=== PATIENT | female | born 1975 | race Caucasian/White ===

== ENCOUNTER → 2016-10-25 | Outpatient (CLI) | payer OTHER ==
--- NOTE | 2016-10-27 09:52 | MM ---
Reason for exam: screening (asymptomatic). Last mammogram was performed 4 years and 2 months ago. History: Patient had first child at age 34. Benign excisional biopsy of the left breast, 2007. Benign excisional biopsy of the left breast, November 21, 2001. Physical Findings: A clinical breast exam by your physician is recommended on an annual basis and results should be correlated with mammographic findings. MG Screening Mammo w CAD Bilateral CC and MLO view(s) were taken. Prior study comparison: August 31, 2012, bilateral digital screening mammo w/CAD. October 25, 2001, bilateral special view mammogram. The breast tissue is heterogeneously dense. This may lower the sensitivity of mammography. No significant changes when compared with prior studies. ASSESSMENT: Benign, BI-RAD 2 RECOMMENDATION: Routine screening mammogram of both breasts in 1 year.
== END | disposition home or self-care (01) ==
LOC: RADMAMWWP 14:32
PROVIDERS: ATTEND Family Medicine
DX: Z12.31 Encounter for screening mammogram for malignant neoplasm of breast (principal)

== ENCOUNTER → 2016-11-29 | Outpatient (CLI) | payer OTHER ==
--- NOTE | 2016-11-29 13:17 | US ---
EXAMINATION TYPE: US thyroid st tissue head/neck DATE OF EXAM: 11/29/2016 11:18 AM COMPARISON: NONE CLINICAL HISTORY: E06.3 HASHIMOTOS, THYROIDITIS. GLAND SIZE: Right Lobe: 5.1 x 1.1 x 1.5 cm Overall Parenchyma: homogenous Left Lobe: 5.8 x 1.3 x 1.5 cm Overall Parenchyma: homogeneous Isthmus Thickness: 0.2 cm NODULES RIGHT: # of nodules measured on right: 0 LEFT: # of nodules measured on left: 0 ISTHMUS: # of nodules measured in the isthmus: 0 TECHNOLOGIST IMPRESSION: Bilateral neck scanned, no abnormal lymphadenopathy noted. Thyroid gland is upper limits of normal in size and fairly homogeneous in echotexture without evidenc e of suspicious focal solid or cystic nodule. IMPRESSION: Unremarkable study.
== END | disposition home or self-care (01) ==
LOC: RADUSWWP 11:03
PROVIDERS: ATTEND Family Medicine
DX: E06.3 Autoimmune thyroiditis (principal)
CPT/HCPCS: 76536

== ENCOUNTER → 2018-01-30 | Outpatient (CLI) | payer OTHER ==
--- NOTE | 2018-01-31 15:08 | MM ---
Reason for exam: screening (asymptomatic). Last mammogram was performed 1 year and 3 months ago. History: Patient had first child at age 34. Benign excisional biopsy of the left breast, 2007. Benign excisional biopsy of the left breast, November 21, 2001. Physical Findings: A clinical breast exam by your physician is recommended on an annual basis and results should be correlated with mammographic findings. MG Screening Mammo w CAD Bilateral CC and MLO view(s) were taken. Prior study comparison: October 25, 2016, bilateral MG screening mammo w CAD. August 31, 2012, bilateral digital screening mammo w/CAD. There are scattered fibroglandular densities. No significant changes when compared with prior studies. ASSESSMENT: Negative, BI-RAD 1 RECOMMENDATION: Routine screening mammogram of both breasts in 1 year.
== END | disposition home or self-care (01) ==
LOC: RADMAMWWP 11:00
PROVIDERS: ATTEND Obstetrics & Gynecology
DX: Z12.31 Encounter for screening mammogram for malignant neoplasm of breast (principal)
CPT/HCPCS: 77067

== ENCOUNTER 2018-06-03 21:12 | Observation (INO) | payer OTHER ==
--- NOTE | 2018-06-03 21:39 | ED ---
Chest Pain HPI - General Chief Complaint: Chest Pain Stated Complaint: Chest Pain Time Seen by Provider: 06/03/18 21:37 Source: patient Mode of arrival: wheelchair Limitations: no limitations - History of Present Illness Initial Comments: This patient is a 43-year-old woman who presents to be evaluated for substernal chest pain that does seem to radiate to her back, and it developed between 3 and 4 PM. She states that it initially as feeling like heartburn. She had just eaten pizza prior to coming on. She had also been mowing her lawn, but states she was not exerting herself when it started. She later was having some aching in her left shoulder but thought that that may be related to mowing the lawn. The patient states that at home she took aspirin and she also tried taking a hot shower to see if that'll help but didn't seem to affect the pain. She noted that she was having some nausea and she felt like she was breaking into a cold sweat. Review of risk factors shows that patient has strong history of heart disease on her mother's side of the family, including a grandmother who had "open heart surgery" when she was in her 30s. The patient does not know her paternal medical history. MD Complaint: chest pain Onset/Timin -: hour(s) Onset: after eating Pain Location: substernal Pain Radiation: none Severity: moderate Quality: other (Like heartburn) Consistency: constant Improves With: nothing Worsens With: nothing Anginal Symptoms: nausea, diaphoresis Treatments Prior to Arrival: aspirin - Related Data Allergies Allergy/AdvReac Type Severity Reaction Status Date / Time hydromorphone [From Dilaudid] Allergy Nausea & Verified 06/03/18 21:18 Vomiting morphine Allergy Nausea & Verified 06/03/18 21:18 Vomiting Sulfa (Sulfonamide Allergy Anaphylaxis Verified 06/03/18 21:18 Antibiotics) Review of Systems ROS Statement: Those systems with pertinent positive or pertinent negative responses have been documented in the HPI. ROS Other: All systems not noted in ROS Statement are negative. Constitutional: Denies: fever, chills Respiratory: Denies: cough, dyspnea Cardiovascular: Reports: chest pain. Denies: palpitations, dyspnea on exertion , orthopnea, edema, syncope Gastrointestinal: Reports: nausea. Denies: abdominal pain, vomiting, diarrhea, melena, hematochezia Genitourinary: Denies: dysuria, frequency, hematuria, abnormal menses Musculoskeletal: Denies: back pain Skin: Denies: rash Neurological: Denies: headache, weakness, numbness EKG Findings - EKG Comments: EKG Findings:: Possible Q waves inferiorly consistent with old inferior infarct. As no old ECG for comparison. - EKG Results: EKG: interpreted by ERMD, sinus rhythm, normal axis, normal QRS EKG shows: tachycardia (Rate approximately 106 bpm) Past Medical History Past Medical History: Atrial Fibrillation Additional Past Medical History / Comment(s): linda History of Any Multi-Drug Resistant Organisms: None Reported Past Surgical History: Section Past Psychological History: Depression Smoking Status: Never smoker Past Alcohol Use History: None Reported Past Drug Use History: Marijuana General Exam Limitations: no limitations General appearance: alert, in no apparent distress, obese Head exam: Present: atraumatic, normocephalic Eye exam: Present: normal appearance. Absent: scleral icterus, conjunctival injection, nystagmus ENT exam: Present: normal oropharynx Neck exam: Present: normal inspection Respiratory exam: Present: normal lung sounds bilaterally. Absent: respiratory distress, wheezes, rales, rhonchi, stridor Cardiovascular Exam: Present: regular rate, normal rhythm, normal heart sounds. Absent: systolic murmur, diastolic murmur, rubs, gallop GI/Abdominal exam: Present: soft. Absent: distended, tenderness, guarding, rebound, mass Extremities exam: Present: normal inspection, normal capillary refill. Absent: pedal edema, calf tenderness Back exam: Present: normal inspection. Absent: CVA tenderness (R), CVA tenderness (L) Neurological exam: Present: alert Skin exam: Present: warm, dry, intact, normal color. Absent: rash Course Vital Signs 06/03/18 06/03/18 06/03/18 21:14 21:17 22:17 Temperature 98.5 F Pulse Rate 125 H 101 H 97 Respiratory 18 15 16 Rate Blood Pressure 170/104 163/98 132/78 O2 Sat by Pulse 98 93 L 99 Oximetry Disposition
[2018-06-03 21:52] LABS: Basophils % (A) 0 %; Eosinophils # (A) 0.2 k/uL (0-0.7); Eosinophils % (A) 2 %; HCT 38.8 % (34.0-46.0); HGB 12.7 gm/dL (11.4-16.0); Lymphocytes # (A) 1.8 k/uL (1.0-4.8); Lymphocytes % (A) 16 %; MCH 26.7 pg (25.0-35.0); MCHC 32.9 g/dL (31.0-37.0); MCV 81.2 fL (80.0-100.0); Mean Platelet Volume 7.8; Monocytes # (A) 0.5 k/uL (0-1.0); Monocytes % (A) 5 %; Neutrophils # (A) 8.5 k/uL (1.3-7.7); Neutrophils % (A) 76 %; Platelet Count 227 k/uL (150-450); RBC 4.77 m/uL (3.80-5.40); RDW 13.7 % (11.5-15.5); WBC 11.2 k/uL (3.8-10.6)
[2018-06-03 22:02] LABS: ALT 42 U/L (9-52); AST 27 U/L (14-36); Albumin 3.9 g/dL (3.5-5.0); Alkaline Phosphatase 72 U/L (38-126); Amylase 85 U/L (30-110); Anion Gap 9 mmol/L; Blood Urea Nitrogen 11 mg/dL (7-17); Calcium 9.1 mg/dL (8.4-10.2); Carbon Dioxide 20 mmol/L (22-30); Chloride 109 mmol/L (98-107); Glucose 106 mg/dL (74-99); Lipase 266 U/L (23-300); Magnesium 1.7 mg/dL (1.6-2.3); Potassium 4.1 mmol/L (3.5-5.1); Sodium 138 mmol/L (137-145); Total Bilirubin 0.3 mg/dL (0.2-1.3); Total Protein 6.9 g/dL (6.3-8.2)
[2018-06-03 22:04] LABS: Creatine Kinase 66 U/L (30-135)
[2018-06-03 22:17] LABS: Creatine Kinase MB 0.6 ng/mL (0.0-2.4); Troponin I <0.012 ng/mL (0.000-0.034)
[2018-06-03 22:18] LABS: Partial Thromboplastin Time 22.2 sec (22.0-30.0); Prothrombin Time 9.5 sec (9.0-12.0)
--- NOTE | 2018-06-03 22:21 | XR ---
EXAMINATION TYPE: XR chest 2V DATE OF EXAM: 06/03/2018 COMPARISON: NONE HISTORY: Difficulty breathing TECHNIQUE: Frontal and lateral views of the chest are obtained. FINDINGS: Heart and mediastinum are normal. Lungs are clear. Diaphragm is normal. Bony thorax appear s normal. IMPRESSION: Normal chest
[2018-06-03 22:22] LABS: D-Dimer 1.1 mg/L FEU (<0.60)
--- NOTE | 2018-06-03 22:53 | CT ---
EXAMINATION TYPE: CT chest angio for PE DATE OF EXAM: 06/03/2018 COMPARISON: None HISTORY: Left upper chest pain today. CT DLP: 498.1 mGycm Automated exposure control for dose reduction was used. CONTRAST: CT Chest for pulmonary embolism performed with with IV Contrast, patient injected with 72 mL of Isovu e 370. FINDINGS: There are 3-D post processed images. The lungs are clear of infiltrate. There is no evidence of a pulmonary mass. There is no pleural effu liam. There is normal contrast opacification of the pulmonary arteries. I see no filling defect. Ther e are no hilar masses. There is no mediastinal adenopathy. Thoracic aorta appears normal. There is no evidence of aneurysm or dissection. Heart size is normal. The bony thorax is intact. There is minor spurring in the thoracic spine. IMPRESSION: No evidence of pulmonary embolism. Small hiatal hernia noted.
[2018-06-03] MEDS ORDERED: ONDANSETRON 4 MG/2 ML VIAL IVP STA (23:09)
[2018-06-03] MEDS ORDERED: FAMOTIDINE 20 MG/2 ML VIAL IV STA (23:09)
[2018-06-03] MEDS ORDERED: KETOROLAC 30 MG/ML 1 ML VIAL IVP STA (23:09)
[2018-06-03] MEDS ORDERED: NITROGLYCERIN SL TABS 0.4 MG TAB SUBLINGUAL PRN (23:37)
[2018-06-03] MEDS ORDERED: ENOXAPARIN 100 MG/ML SYRINGE SQ STA (23:50)
[2018-06-04] MEDS ORDERED: METOPROLOL TARTRATE 25 MG TAB PO STA (00:32)
--- NOTE | 2018-06-04 01:17 | US ---
EXAMINATION TYPE: US abdomen limited DATE OF EXAM: 06/04/2018 COMPARISON: NONE CLINICAL HISTORY: Attention RUQ. Epigastric pain.. Hx nephrolithiasis and lithotripsy EXAM MEASUREMENTS: Liver Length: 19.0 cm Gallbladder Wall: 0.2 cm CBD: 0.5 cm Right Kidney: 12.1 x 5.2 x 5.5 cm Limited due to bowel gas Pancreas: Tail obscured by overlying bowel gas Liver: Increased attenuation Gallbladder: No stones seen Evidence for sonographic Alicia's sign: No CBD: wnl Right Kidney: echogenic foci seen likely nephrolithiasis (0.8 x 0.3 x 0.6 cm) IMPRESSION: No gallstones or dilated ducts. No hydronephrosis in the right kidney. Possible 5 mm nono bstructing calculus in the upper pole right kidney.
[2018-06-04 01:47] VITALS: BMI 43.4
[2018-06-04 03:39] LABS: Creatine Kinase 59 U/L (30-135)
[2018-06-04 03:41] LABS: Cholesterol 184 mg/dL (<200); HDL Cholesterol 52 mg/dL (40-60); LDL Cholesterol,Calculated 89 mg/dL (0-99); Triglycerides 215 mg/dL (<150)
[2018-06-04 03:52] LABS: Creatine Kinase MB 0.6 ng/mL (0.0-2.4); Troponin I <0.012 ng/mL (0.000-0.034)
[2018-06-04] MEDS ORDERED: ASPIRIN 81 MG PO SCH (09:00)
[2018-06-04] MEDS ORDERED: ASPIRIN 325 MG TAB PO SCH (09:00)
[2018-06-04] MEDS ORDERED: NORGESTIMATE ETHINYL ESTRADIOL PO SCH (09:30)
[2018-06-04] MEDS ORDERED: LORATADINE 10 MG TAB PO SCH (09:30)
[2018-06-04] MEDS ORDERED: MAGNESIUM OXIDE 400 MG TAB PO SCH (09:30)
[2018-06-04] MEDS ORDERED: FLUoxetine HCL 20 MG CAP PO SCH (10:00)
[2018-06-04 10:09] LABS: Basophils % (A) 1 %; Eosinophils # (A) 0.2 k/uL (0-0.7); Eosinophils % (A) 4 %; HCT 36.4 % (34.0-46.0); HGB 12.5 gm/dL (11.4-16.0); Lymphocytes # (A) 1.5 k/uL (1.0-4.8); Lymphocytes % (A) 24 %; MCH 28.3 pg (25.0-35.0); MCHC 34.4 g/dL (31.0-37.0); MCV 82.2 fL (80.0-100.0); Mean Platelet Volume 8.3; Monocytes # (A) 0.4 k/uL (0-1.0); Monocytes % (A) 7 %; Neutrophils % (A) 63 %; Platelet Count 203 k/uL (150-450); RBC 4.42 m/uL (3.80-5.40); RDW 13.7 % (11.5-15.5); WBC 6.4 k/uL (3.8-10.6)
[2018-06-04 10:22] LABS: ALT 40 U/L (9-52); AST 25 U/L (14-36); Albumin 3.5 g/dL (3.5-5.0); Alkaline Phosphatase 59 U/L (38-126); Anion Gap 7 mmol/L; Blood Urea Nitrogen 12 mg/dL (7-17); Calcium 8.6 mg/dL (8.4-10.2); Carbon Dioxide 20 mmol/L (22-30); Chloride 109 mmol/L (98-107); Glucose 96 mg/dL (74-99); Potassium 4.3 mmol/L (3.5-5.1); Sodium 136 mmol/L (137-145); Total Bilirubin 0.5 mg/dL (0.2-1.3); Total Protein 6.4 g/dL (6.3-8.2)
[2018-06-04 10:46] LABS: Creatine Kinase 57 U/L (30-135)
--- NOTE | 2018-06-04 10:46 | P.HPIM ---
History of Present Illness H&P Date: 06/04/18 Chief Complaint: Chest pain This is a 43-year-old female, patient of Dr. Meadows. She has a known past medical history of Benito's, seasonal ALLERGIES, PVCs, kidney stones with previous lithotripsy. Patient reports yesterday afternoon she had been working out in the yard cutting the lawn also pulling some weeds. She noted initially that she thought her ALLERGIES were acting up she had some drainage and a little hacking cough. Then started to have chest discomfort in the left side of the chest that eventually went up into the jaw and left shoulder. Patient also reports eating pizza for lunch. She initially thought that she might be having heartburn from her lunch. She took Tums also had an aspirin and Motrin a little bit later. None of these medications worked. She tried a warm shower and again was still having symptoms. She does have and grandmother who at the age of 30 had open heart surgery. Patient reports having a stress test about 2 years ago which was negative. At that time she was diagnosed with Benito's as well. She reports not being on any medication for Benito's. Troponins are negative 2 sets. She did have an elevated d-dimer 1.10 CTA was negative for PE. Abdominal ultrasound showed no evidence of gallstones or dilation in the ducts. There is a possible 5 mm nonobstructing stone in the right kidney which patient is aware of. Her TSH level normal at 2.150. White count initially elevated at 11.2 has normalized with no antibiotics. Patient also reports having some shortness of breath nausea and dizziness with her symptoms. She denies any fever or chills. Denies any actual vomiting and any changes in her bowel movements. Denies any burning with urination. She did have one loose stool this morning. Patient has been admitted to observation for further workup in regards to her chest pain. Cardiology consulted and patient is scheduled for stress test this afternoon. Echo already completed. Awaiting results. Review of Systems Please refer to HPI otherwise unremarkable Past Medical History Past Medical History: Hypertension, Thyroid Disorder Additional Past Medical History / Comment(s): hashimotos, kidney stones, PVCs History of Any Multi-Drug Resistant Organisms: None Reported Past Surgical History: Section Additional Past Surgical History / Comment(s): bunionectomy, lumpectomy left breast Past Anesthesia/Blood Transfusion Reactions: No Reported Reaction Past Psychological History: Depression Smoking Status: Never smoker Past Alcohol Use History: None Reported Past Drug Use History: Marijuana - Past Family History Mother Family Medical History: Hypertension Medications and Allergies Home Medications Medication Instructions Recorded Confirmed Type Aspirin [Adult Low Dose Aspirin EC] 81 mg PO DAILY 06/04/18 06/04/18 History Ergocalciferol [Vitamin D2 1 cap PO MO 06/04/18 06/04/18 History (DRISDOL)] FLUoxetine HCL [PROzac] 40 mg PO DAILY 06/04/18 06/04/18 History Loratadine 10 mg PO DAILY 06/04/18 06/04/18 History Magnesium Oxide [Mag-Ox] 400 mg PO DAILY 06/04/18 06/04/18 History Norgestimate-Ethinyl Estradiol 1 tab PO DAILY 06/04/18 06/04/18 History [Ortho Tri-Cyclen 28 Tablet] Propranolol [Inderal] 20 mg PO BID 06/04/18 06/04/18 History Topiramate [Topamax] 50 mg PO HS 06/04/18 06/04/18 History Allergies Allergy/AdvReac Type Severity Reaction Status Date / Time Sulfa (Sulfonamide Allergy Anaphylaxis Verified 06/04/18 08:59 Antibiotics) acetaminophen [From Vicodin] AdvReac Nausea & Verified 06/04/18 09:01 Vomiting hydrocodone [From Vicodin] AdvReac Nausea & Verified 06/04/18 09:01 Vomiting hydromorphone [From Dilaudid] AdvReac Nausea & Verified 06/04/18 09:01 Vomiting morphine AdvReac Nausea & Verified 06/04/18 09:01 Vomiting Physical Exam Vitals: Vital Signs Temp Pulse Pulse Resp BP BP Pulse Ox 06/04/18 08:00 75 16 06/04/18 07:10 98.4 F 56 L 18 113/71 97 06/04/18 04:00 98.5 F 75 16 138/87 96 06/04/18 03:48 16 06/04/18 01:30 16 06/04/18 01:20 98.5 F 88 16 130/82 96 06/04/18 00:00 84 16 165/102 98 06/03/18 22:17 97 16 132/78 99 06/03/18 21:25 15 06/03/18 21:17 101 H 15 163/98 93 L 06/03/18 21:14 98.5 F 125 H 18 170/104 98 Intake and Output 06/03/18 06/04/18 06/04/18 22:59 06:59 14:59 Other: Voiding Method Toilet Toilet # Voids 1 Weight 104.326 kg 104.3 kg Head normocephalic Neck supple Lungs clear to auscultation bilaterally no wheezing or crackles Heart regular rate and rhythm S1-S2, no rub or gallop Abdomen is soft nontender nondistended positive bowel sounds no hepatosplenomegaly Extremities no edema Neuro alert and orientated to 3 Results CBC & Chem 7: 06/04/18 03:04 06/04/18 09:40 Labs: Abnormal Lab Results - Last 24 Hours (Table) 06/03/18 06/03/18 06/03/18 Range/Units 21:34 21:34 21:34 WBC 11.2 H (3.8-10.6) k/uL Neutrophils # 8.5 H (1.3-7.7) k/uL D-Dimer 1.10 H (<0.60) mg/L FEU Sodium (137-145) mmol/L Chloride 109 H (98-107) mmol/L Carbon Dioxide 20 L (22-30) mmol/L Glucose 106 H (74-99) mg/dL Triglycerides (<150) mg/dL 06/04/18 06/04/18 Range/Units 03:04 09:40 WBC (3.8-10.6) k/uL Neutrophils # (1.3-7.7) k/uL D-Dimer (<0.60) mg/L FEU Sodium 136 L (137-145) mmol/L Chloride 109 H (98-107) mmol/L Carbon Dioxide 20 L (22-30) mmol/L Glucose (74-99) mg/dL Triglycerides 215 H (<150) mg/dL Thrombosis Risk Factor Assmnt - Choose All That Apply Each Factor Represents 1 point: Age 41-60 years, Obesity (BMI >25) Thrombosis Risk Factor Assessment Total Risk Factor Score: 2 Thrombosis Risk Factor Assessment Level: Low Risk Assessment and Plan Assessment: 1. Chest pain: troponins negative 2. EKG sinus tach with a heart rate of 106. Patient did receive a dose of metoprolol in the ER. Cardiology consulted and have ordered a stress test and echo. Chest x-ray negative. Abdominal ultrasound shows no evidence of gallstones or dilated ducts. There is a possible 5 mm nonobstructing stone in the right kidney 2. Elevated d-dimer of 1.10 on admission CTA negative for PE 3. History of kidney stones in the right kidney with previous lithotripsy 4. History of Benito's: TSH normal at 2.150 5. 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 Vitamin D deficiency resume vitamin D supplement 7. History of seasonal ALLERGIES GI prophylaxis Pepcid and DVT prophylaxis subcu heparin Time with Patient: Greater than 30 (Greater than 60% of the total time spent in counseling and coordination of care.I performed an examination of the patient and discussed their management with the physician Technical Solutions Engineer. I have reviewed the Physician Technical Solutions Engineer's notes and agree with the documented findings and plan of care)
--- NOTE | 2018-06-04 10:46 | ECHOF ---
Referral Reason:cp, sob MEASUREMENTS -------- HEIGHT: 154.9 cm WEIGHT: 103.9 kg BP: 138/87 RVIDd: 2.9 cm (< 3.3) IVSd: 1.1 cm (0.6 - 1.1) LVIDd: 4.7 cm (3.9 - 5.3) LVPWd: 1.1 cm (0.6 - 1.1) IVSs: 1.5 cm LVIDs: 2.9 cm LVPWs: 1.5 cm LAESV Index (A-L): 28.10 ml/m Ao Diam: 2.7 cm (2.0 - 3.7) AV Cusp: 1.9 cm (1.5 - 2.6) LA Diam: 3.4 cm (2.7 - 3.8) EPSS: 0.5 cm MV E Medhat: 1.00 m/s MV DecT: 252 ms MV A Mdehat: 0.91 m/s MV E/A Ratio: 1.09 RAP: 10.00 mmHg RVSP: 32.27 mmHg MV EF SLOPE: 92.41 mm/s (70 - 150) MV EXCURSION: 1.73 cm (> 18.000) FINDINGS -------- Sinus rhythm. This was a technically good study. LV size, wall thickness and systolic function are normal, with an EF greater than 55%. There is bor derline concentric left ventricular hypertrophy. The right ventricle is normal in size and function. Normal LA size by volume 22+/-6 ml/m2. The right atrium is normal in size. The aortic valve is trileaflet, and appears structurally normal. No aortic stenosis or regurgitation. The mitral valve is normal. There is trace to mild mitral regurgitation. Trace tricuspid regurgitation present. Right ventricular systolic pressure is normal at < 35 mmHg. There is no evidence of pulmonary hypertension. The pulmonic valve was not well visualized. The aortic root size is normal. The IVC is dilated with normal collapse. There is no pericardial effusion. CONCLUSIONS -------- 1. Sinus rhythm. 2. This was a technically good study. 3. LV size, wall thickness and systolic function are normal, with an EF greater than 55%. 4. There is borderline concentric left ventricular hypertrophy. 5. Normal LA size by volume 22+/-6 ml/m2. 6. The aortic valve is trileaflet, and appears structurally normal. No aortic stenosis or regurgitati on. 7. There is trace to mild mitral regurgitation. 8. Trace tricuspid regurgitation present. 9. Right ventricular systolic pressure is normal at < 35 mmHg. 10. The aortic root size is normal. 11. The IVC is dilated with normal collapse. 12. There is no pericardial effusion. DIGITAL PRINTER OPERATOR: Luis Quinones RDCS
[2018-06-04 10:58] LABS: Creatine Kinase MB 0.6 ng/mL (0.0-2.4); Troponin I <0.012 ng/mL (0.000-0.034)
[2018-06-04] MEDS ORDERED: ERGOCALCIFEROL 50,000 UNIT CAP PO SCH (11:00)
--- NOTE | 2018-06-04 11:07 | P.CRDCN ---
History of Present Illness History of present illness: Mrs. Vital is a pleasant 43-year-old female past medical history significant for jennifer disease. She denies history of coronary artery disease , hypertension, dyslipidemia or diabetes mellitus. She has seen Dr. Xiao in the past and has had a stress test approximately 5 years ago. We have been asked to see her in consultation for chest pain. She states she was cutting the grass yesterday and started feeling a heavy sensation in the left precordial region with increased shortness of breath. She stopped cutting the grass and took a Tums thinking it was reflux from eating pizza for lunch. A few minutes later her left shoulder started to throb. She attributed this to all the yard work she had been doing a took a motrin. 30 minutes later her left jaw started to ache and she became extremely diaphoretic. She checked her BP at home, 170/ 90. She took aspirin and came to ED for evaluation. Her discomfort persisted off and on for most of the night with no specific aggravating factors. She denies associated palpitations, dizziness, nausea or vomiting. EKG reveals sinus mechanism with non-specific minimal ST depression in pepe- lateral leads. Chest xray negative for an acute cardiopulmonary process. CTA negative for PE with normal aorta. Abdominal ultrasound negative for acute cholecystitis. Laboratory data reviewed, hemoglobin 12.5, platelets 203, INR 1.1, sodium 136, potassium 4.3, magnesium 1.7, creatinine 0.7, cardiac enzymes negative 3, TSH 2.15, LDL 89 and HDL 52. She currently takes aspirin 81 mg and propanolol 25 mg twice a day. Propanolol was used for frequent palpitations secondary to Jennifer disease. Review of Systems At the time of my exam: CONSTITUTIONAL: Denies fever. Denies chills. EYES: Denies blurred vision. Denies vision changes. Denies eye pain. EARS, NOSE, MOUTH & THROAT: Denies headache. Denies sore throat. Denies ear pain. CARDIOVASCULAR: Denies chest pain. Denies shortness of breath. Denies orthopnea. Denies PND. Denies palpitations. RESPIRATORY: Denies cough. GASTROINTESTINAL: Denies abdominal pain. Denies diarrhea. Denies constipation. Denies nausea. Denies vomiting. MUSCULOSKELETAL: Denies myalgias. INTEGUMENTARY: Denies pruitis. Denies rash. NEUROLOGIC: Denies numbness. Denies tingling. Denies weakness. PSYCHIATRIC: Denies anxiety. Denies depression. ENDOCRINE: Denies fatigue. Denies weight change. Denies polydipsia. Denies polyurina. GENITOURINARY: Denies burning, hematuria or urgency with micturation. HEMATOLOGIC: Denies history of anemia. Denies bleeding. Past Medical History Past Medical History: Atrial Fibrillation, Hypertension, Thyroid Disorder Additional Past Medical History / Comment(s): hashimotos, kidney stones History of Any Multi-Drug Resistant Organisms: None Reported Past Surgical History: Section Additional Past Surgical History / Comment(s): bunionectomy, lumpectomy left breast Past Anesthesia/Blood Transfusion Reactions: No Reported Reaction Past Psychological History: Depression Smoking Status: Never smoker Past Alcohol Use History: None Reported Past Drug Use History: Marijuana - Past Family History Mother Family Medical History: Hypertension Medications and Allergies Home Medications Medication Instructions Recorded Confirmed Type Aspirin [Adult Low Dose Aspirin EC] 81 mg PO DAILY 06/04/18 06/04/18 History Ergocalciferol [Vitamin D2 1 cap PO MO 06/04/18 06/04/18 History (DRISDOL)] FLUoxetine HCL [PROzac] 40 mg PO DAILY 06/04/18 06/04/18 History Loratadine 10 mg PO DAILY 06/04/18 06/04/18 History Magnesium Oxide [Mag-Ox] 400 mg PO DAILY 06/04/18 06/04/18 History Norgestimate-Ethinyl Estradiol 1 tab PO DAILY 06/04/18 06/04/18 History [Ortho Tri-Cyclen 28 Tablet] Propranolol [Inderal] 20 mg PO BID 06/04/18 06/04/18 History Topiramate [Topamax] 50 mg PO HS 06/04/18 06/04/18 History Allergies Allergy/AdvReac Type Severity Reaction Status Date / Time Sulfa (Sulfonamide Allergy Anaphylaxis Verified 06/04/18 08:59 Antibiotics) acetaminophen [From Vicodin] AdvReac Nausea & Verified 06/04/18 09:01 Vomiting hydrocodone [From Vicodin] AdvReac Nausea & Verified 06/04/18 09:01 Vomiting hydromorphone [From Dilaudid] AdvReac Nausea & Verified 06/04/18 09:01 Vomiting morphine AdvReac Nausea & Verified 06/04/18 09:01 Vomiting Physical Exam Vitals: Vital Signs Temp Pulse Pulse Resp BP BP Pulse Ox 06/04/18 04:00 98.5 F 75 16 138/87 96 06/04/18 03:48 16 06/04/18 01:30 16 06/04/18 01:20 98.5 F 88 16 130/82 96 06/04/18 00:00 84 16 165/102 98 06/03/18 22:17 97 16 132/78 99 06/03/18 21:25 15 06/03/18 21:17 101 H 15 163/98 93 L 06/03/18 21:14 98.5 F 125 H 18 170/104 98 Intake and Output 06/03/18 06/04/18 06/04/18 22:59 06:59 14:59 Other: Voiding Method Toilet Weight 104.326 kg 104.3 kg Blood pressure 113/71 heart rate 56 afebrile maintaining oxygen saturation on room air GENERAL: This is a 43-year-old female in no apparent distress at the time of my examination. Obese. HEENT: Head is atraumatic, normocephalic. Pupils are equal, round. Sclerae anicteric. Conjunctivae are clear. Mucous membranes of the mouth are moist. Neck is supple. There is no jugular venous distention. No carotid bruit is heard. LUNGS: Clear to auscultation no wheezes, rales or rhonchi. No chest wall tenderness is noted on palpation or with deep breathing. HEART: Regular rate and rhythm without murmurs, rubs or gallops. S1 and S2 heard. ABDOMEN: Soft, nontender. Bowel sounds are heard. No organomegaly noted. EXTREMITIES: No evidence of peripheral edema and no calf tenderness noted. VASCULAR: Radial and dorsalis pedis pulses palpated, no evidence of clubbing. NEUROLOGIC: Patient is awake, alert and oriented x3. Results 06/04/18 03:04 06/04/18 09:40 Cardiac Enzymes 06/03/18 06/03/18 06/04/18 Range/Units 21:34 21:34 03:04 AST 27 (14-36) U/L CK-MB (CK-2) 0.6 0.6 (0.0-2.4) ng/mL Troponin I <0.012 <0.012 (0.000-0.034) ng/mL Coagulation 06/03/18 Range/Units 21:34 PT 9.5 (9.0-12.0) sec APTT 22.2 (22.0-30.0) sec Lipids 06/04/18 Range/Units 03:04 Triglycerides 215 H (<150) mg/dL Cholesterol 184 (<200) mg/dL HDL Cholesterol 52 (40-60) mg/dL CBC 06/03/18 Range/Units 21:34 WBC 11.2 H (3.8-10.6) k/uL RBC 4.77 (3.80-5.40) m/uL Hgb 12.7 (11.4-16.0) gm/dL Hct 38.8 (34.0-46.0) % Plt Count 227 (150-450) k/uL Comprehensive Metabolic Panel 06/03/18 Range/Units 21:34 Sodium 138 (137-145) mmol/L Potassium 4.1 (3.5-5.1) mmol/L Chloride 109 H (98-107) mmol/L Carbon Dioxide 20 L (22-30) mmol/L BUN 11 (7-17) mg/dL Creatinine 0.80 (0.52-1.04) mg/dL Glucose 106 H (74-99) mg/dL Calcium 9.1 (8.4-10.2) mg/dL AST 27 (14-36) U/L ALT 42 (9-52) U/L Alkaline Phosphatase 72 (38-126) U/L Total Protein 6.9 (6.3-8.2) g/dL Albumin 3.9 (3.5-5.0) g/dL Current Medications Generic Name Dose Route Start Last Admin Trade Name Freq PRN Reason Stop Dose Admin Aspirin 325 mg 06/04/18 09:00 Aspirin PO DAILY SHOSHANA Nitroglycerin 0.4 mg 06/03/18 23:37 Nitrostat SUBLINGUAL Q5M PRN Chest Pain Intake and Output 06/03/18 06/04/18 06/04/18 22:59 06:59 14:59 Other: Voiding Method Toilet Weight 104.326 kg 104.3 kg 06/03/18 21:34 06/03/18 21:34 Assessment and Plan Assessment: ASSESSMENT Chest pain, atypical. An acute coronary event has been ruled out with no acute EKG evidence of ischemia and negative cardiac enzymes. Baseline EKG abnormalities with minimal ST depression in pepe-lateral leads Frequent palpitations Jennifer disease Obesity PLAN Obtain 2D echocardiogram and doppler study to assess cardiac structure and function. Perform exercise stress echocardiogram to assess for stress induced cardiac ischemia. If stress test is normal she is stable from a cardiac perspective. Follow up with Dr. Xiao upon discharge. Lifestyle modifications discussed for weight loss. Thank you kindly for this consultation. Nurse Practitioner note has been reviewed, I agree with a documented findings and plan of care. Patient was seen and examined.
[2018-06-04 12:11] VITALS: BP 111/61; PULSE 65; RESP 18; TEMP 98.5
--- NOTE | 2018-06-04 13:31 | ECHOS ---
STRESS ECHOCARDIOGRAM DATE OF SERVICE: 06/04/2018 INDICATIONS: Chest pain. MEDICATIONS: BASELINE HEART RATE: 67 BASELINE BLOOD PRESSURE: 153/80 MAXIMUM HEART RATE: 161 MAXIMUM BLOOD PRESSURE: 199/76 85% MPHR: 152 100% MPHR: 179 METS: 9.1 MAXIMUM STAGE REACHED: II TOTAL EXERCISE TIME: 7 minutes 41 seconds CLINICAL INFORMATION: Baseline rhythm is sinus mechanism, rate of 67, normal axis and intervals, normal electrocardiogram. Baseline blood pressure 153/80 mmHg. Patient exercise on Angel protocol for 7 minute 41 seconds reaching a peak rate 161 beats per minute, which is equal to 89% maximum predicted heart rate. Peak blood pressure 199/76 mmHg. Test was terminated secondary to fatigue. There was no chest pain. Electrocardiograph monitoring revealed no evidence of diagnostic ischemic ST deviation. Baseline echocardiogram revealed normal wall motion. At peak exercise, there was normal wall motion augmentation with no hypokinesis or dyskinesis. CONCLUSION: 1. Average exercise tolerance with normal electrocardiograph response to exercise. 2. Normal stress echocardiogram with no evidence of stress induced ischemia. MMODL / IJN: [id number] /
--- NOTE | 2018-06-04 13:54 | P.DS ---
Providers Date of admission: 06/03/18 23:40 Expected date of discharge: 06/04/18 Attending physician: Luis A Minor Consults: 06/03/18 23:37 Consult Physician Routine Consulting Provider: Juan Johnson Consult Reason/Comments: chest pain Do you want consulting provider notified?: Yes Primary care physician: Ruby Meadows Hospital Course: Discharge diagnosis 1. Chest pain: UT ruled out. troponins negative 2. EKG sinus tach with a heart rate of 106. Patient did receive a dose of metoprolol in the ER. Cardiology consulted and have ordered a stress test and echo. Chest x-ray negative. Abdominal ultrasound shows no evidence of gallstones or dilated ducts. There is a possible 5 mm nonobstructing stone in the right kidney. Stress echo was normal. No evidence of stress-induced ischemia. Echo reports an EF greater than 55%. Patient seen evaluated by cardiology and they've cleared her for discharge. 2. Elevated d-dimer of 1.10 on admission CTA negative for PE 3. History of kidney stones in the right kidney with previous lithotripsy 4. History of Benito's: TSH normal at 2.150 5. 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 Vitamin D deficiency resume vitamin D supplement 7. History of seasonal ALLERGIES Hospital course This is a 43-year-old female, patient of Dr. Meadows. She has a known past medical history of Benito's, seasonal ALLERGIES, PVCs, kidney stones with previous lithotripsy. Patient reports yesterday afternoon she had been working out in the yard cutting the lawn also pulling some weeds. She noted initially that she thought her ALLERGIES were acting up she had some drainage and a little hacking cough. Then started to have chest discomfort in the left side of the chest that eventually went up into the jaw and left shoulder. Patient also reports eating pizza for lunch. She initially thought that she might be having heartburn from her lunch. She took Tums also had an aspirin and Motrin a little bit later. None of these medications worked. She tried a warm shower and again was still having symptoms. She does have and grandmother who at the age of 30 had open heart surgery. Patient reports having a stress test about 2 years ago which was negative. At that time she was diagnosed with Benito's as well. She reports not being on any medication for Benito's. Troponins are negative 2 sets. She did have an elevated d-dimer 1.10 CTA was negative for PE. Abdominal ultrasound showed no evidence of gallstones or dilation in the ducts. There is a possible 5 mm nonobstructing stone in the right kidney which patient is aware of. Her TSH level normal at 2.150. White count initially elevated at 11.2 has normalized with no antibiotics. Patient also reports having some shortness of breath nausea and dizziness with her symptoms. She denies any fever or chills. Denies any actual vomiting and any changes in her bowel movements. Denies any burning with urination. She did have one loose stool this morning. Patient has been admitted to observation for further workup in regards to her chest pain. Patient was seen evaluated by cardiology. Underwent a stress echo which was reported normal with no evidence of stress-induced ischemia. Echo completed showing an EF greater than 55%. Patient's symptoms have improved. Patient has been cleared by cardiology for discharge. She is medically stable for discharge. Their concerns that her symptoms are likely related to her Benito 's. It is recommended that patient does follow up with an sports therapist in the outpatient setting within the next week. I performed an examination of the patient and discussed their management with the physician Semiconductor Wafers Saw Operator. I have reviewed the Physician Semiconductor Wafers Saw Operator's notes and agree with the documented findings and plan of care Patient Condition at Discharge: Stable Plan - Discharge Summary New Discharge Prescriptions: Continue FLUoxetine HCL [PROzac] 40 mg PO DAILY Norgestimate-Ethinyl Estradiol [Ortho Tri-Cyclen 28 Tablet] 1 tab PO DAILY Ergocalciferol [Vitamin D2 (DRISDOL)] 1 cap PO MO Topiramate [Topamax] 50 mg PO HS Magnesium Oxide [Mag-Ox] 400 mg PO DAILY Loratadine 10 mg PO DAILY Propranolol [Inderal] 20 mg PO BID Aspirin [Adult Low Dose Aspirin EC] 81 mg PO DAILY Discharge Medication List Aspirin [Adult Low Dose Aspirin EC] 81 mg PO DAILY 06/04/18 [History] Ergocalciferol [Vitamin D2 (DRISDOL)] 1 cap PO MO 06/04/18 [History] FLUoxetine HCL [PROzac] 40 mg PO DAILY 06/04/18 [History] Loratadine 10 mg PO DAILY 06/04/18 [History] Magnesium Oxide [Mag-Ox] 400 mg PO DAILY 06/04/18 [History] Norgestimate-Ethinyl Estradiol [Ortho Tri-Cyclen 28 Tablet] 1 tab PO DAILY 06/04 [History] Propranolol [Inderal] 20 mg PO BID 06/04/18 [History] Topiramate [Topamax] 50 mg PO HS 06/04/18 [History] Follow up Appointment(s)/Referral(s): Armida Rondon MD [STAFF PHYSICIAN] - 2 Weeks (office will call with appointment. ) Ruby Meadows MD [Primary Care Provider] - 1 Week Activity/Diet/Wound Care/Special Instructions: Diet: low fat Activity: as tolerated Patient to follow up with Trains Service Conductor outpatient in 1 week Discharge Disposition: HOME SELF-CARE
[2018-06-04] MEDS ORDERED: PROPRANOLOL 20 MG TAB PO SCH (21:00)
[2018-06-04] MEDS ORDERED: TOPIRAMATE 25 MG TAB PO SCH (21:00)
[2018-06-04] MEDS ORDERED: HEPARIN SODIUM,PORCINE 5,000 UNIT/ML 1 ML VIAL SQ SCH (21:00)
[2018-06-05] MEDS ORDERED: FAMOTIDINE 20 MG TAB PO SCH (09:00)
== END 2018-06-04 14:40 | disposition home or self-care (01) ==
LOC: EC 21:12 → 3SUR 23:40 → 3OBS 06-04 07:00
PROVIDERS: ADMIT Internal Medicine; ATTEND Internal Medicine
DX: R07.89 Other chest pain (principal); R79.89 Other specified abnormal findings of blood chemistry; R61 Generalized hyperhidrosis; R11.0 Nausea; R06.02 Shortness of breath; I49.3 Ventricular premature depolarization; E06.3 Autoimmune thyroiditis; I10 Essential (primary) hypertension; I48.91 Unspecified atrial fibrillation; J30.2 Other seasonal allergic rhinitis; E55.9 Vitamin D deficiency, unspecified; D72.829 Elevated white blood cell count, unspecified; F32.9 Major depressive disorder, single episode, unspecified; E66.9 Obesity, unspecified; Z68.41 Body mass index [BMI] 40.0-44.9, adult; Z79.82 Long term (current) use of aspirin; Z79.3 Long term (current) use of hormonal contraceptives; Z79.899 Other long term (current) drug therapy; Z88.5 Allergy status to narcotic agent; Z88.2 Allergy status to sulfonamides; Z88.6 Allergy status to analgesic agent; Z86.39 Personal history of other endocrine, nutritional and metabolic disease; Z87.442 Personal history of urinary calculi; Z82.49 Family history of ischemic heart disease and other diseases of the circulatory system
CPT/HCPCS: 99285 ×2; 96374 ×2; 96375 ×3; 96372; 36415; 93005; 93306; 85379; 80061; 80053 ×2; 84443; 82150; 82550 ×2; 82553 ×2; 83690; 83735; 84484 ×2; 85025 ×2; 85610; 85730; 71046; 76705; 71275; G0378 ×2; C8930; J2405; J1650; J1885; Q9950; Q9967; 93351

== ENCOUNTER 2018-11-26 10:53 | Inpatient (IN) | payer OTHER ==
[2018-11-23 10:17] VITALS: BMI 43.4
--- NOTE | 2018-11-25 14:00 | HP ---
HISTORY AND PHYSICAL REASON FOR ADMISSION: Surgery is scheduled for 11/26/2018. Esther Vital is a 43-year-old patient seen with right ankle injury. She was found to have a displaced right ankle lateral lateral malleolar fracture. I recommended open reduction and internal fixation. The procedure, risks, complications, benefits, recovery were discussed. She was agreeable. Consent was obtained. PAST MEDICAL HISTORY: Depression. PAST SURGICAL HISTORY: section, left knee arthroscopy, right foot bunionectomy, left breast biopsy. MEDICATIONS: Topamax, propranolol, aspirin, loratadine, Prozac. ALLERGIES: SULFA. SOCIAL HISTORY: Denies. She denies tobacco use. PHYSICAL EXAMINATION: Physical evaluation of the right ankle reveals there is swelling laterally. Mild ecchymosis laterally. Tenderness along the lateral malleolus. Limited range of motion of the ankle. Nontender along the medial malleolus. Achilles is intact. She is able to move her toes with no pain. Distal neurovascular exam is intact. RADIOGRAPHS: Radiographs were obtained of the right ankle revealing a displaced lateral malleolar fracture. IMPRESSION: Right ankle lateral malleolus fracture. PLAN: Open reduction and internal fixation, right ankle lateral malleolar fracture. Surgery scheduled for 11/26/2018. MMODL / IJN: [id number] /
[~2018-11-26 10:53] MED LIST: LIDOCAINE 1% 20 ML VIAL (10MG/ML) FOR IV START INTRADERMA PRN; ONDANSETRON 4 MG/2 ML VIAL IVP ONE; ceFAZolin IN SWFI 2 GM/20 ML SYRINGE IVP ONE
[2018-11-26] MEDS: LACTATED RINGERS 1,000 ML IV SCH (14:58)
[2018-11-26] MEDS ORDERED: DEXAMETHASONE SOD PHOSPHATE 10 MG/ML 1 ML VIAL IV ONE (14:59)
[2018-11-26] MEDS ORDERED: MIDAZOLAM 2 MG/2 ML VIAL IVP ONE (15:10)
--- NOTE | 2018-11-26 15:21 | P.ONQ ---
Anesthesiology Proc Note - PNB - Peripheral Nerve Block Performed Right Popliteal Single Time Out Performed: Yes Procedure Start Time: 03:11 Procedure Stop Time: 03:14 Indication: Acute Post-Operative Pain, Requested by physician Sedation Type: Sedate with meaningful contact maintained Preparation: Sterile Prep Needle Size: 50mm (2") Needle Gauge: 21 Technique: Ultrasound (ropi .5% 30cc) Blood Aspirated: No Pain Paresthesia on Injection Noted: No Resistance on Injection: Normal Events: Uneventful and Well Tolerated
[2018-11-26] MEDS ORDERED: fentaNYL (PF) 50 MCG/ML 2 ML AMP ONE (15:24)
[2018-11-26] MEDS ORDERED: SUCCINYLCHOLINE CHLORIDE VIAL 200 MG/10 ML VIAL IV ONE (15:24)
[2018-11-26] MEDS ORDERED: LIDOCAINE 1% INJ 10MG/ML (20 ML MDV) ONE (15:24)
[2018-11-26] MEDS ORDERED: ROPIVACAINE 5 MG/ML 30 ML VIAL ONE (15:24)
[2018-11-26] MEDS ORDERED: ePHEDrine SULFATE/0.9% NACL/PF 50 MG/5 ML SYRINGE IV ONE (15:24)
[2018-11-26] MEDS ORDERED: MIDAZOLAM 2 MG/2 ML VIAL ONE (15:24)
[2018-11-26] MEDS ORDERED: PROPOFOL 10 MG/ML 20 ML VIAL IV ONE (15:24)
[2018-11-26] MEDS ORDERED: ceFAZolin 1,000 MG in SODIUM CHLORIDE 0.9% 1,000 ML IRRIGATION ONE (15:51)
[2018-11-26] MEDS ORDERED: ONDANSETRON 4 MG/2 ML VIAL IVP PRN (16:45)
--- NOTE | 2018-11-26 16:45 | P.OP ---
Date of Procedure: 11/26/18 Preoperative Diagnosis: Displaced right ankle lateral malleolus fracture Postoperative Diagnosis: Displaced right ankle lateral malleolus fracture Procedure(s) Performed: Open reduction and internal fixation right ankle lateral malleolus fracture Implants: Synthes 7-hole semitubular plate and 7 appropriate length screws Anesthesia: GETA, regional (Popliteal nerve block) Surgeon: Daniel Thomason Auto Roller #1: Braeden Amos Estimated Blood Loss (ml): 5 Condition: stable Disposition: PACU Indications for Procedure: 43-year-old patient seen with a displaced right ankle lateral malleolus fracture. I recommended open reduction and internal fixation. Patient was agreeable and consent was obtained. Operative Findings: see description of procedure Description of Procedure: The patient was taken to the operative suite after having a popliteal nerve block performed by the department of anesthesia. The patient received preoperative IV antibiotics. The patient underwent a general anesthetic by the department of anesthesia. A well-padded tourniquet was placed proximal right thigh. The right lower extremity was prepped and draped in the normal sterile orthopedic fashion. The extremity was elevated and tourniquet insufflated to 300. An incision was made over the lateral malleolus sharply through skin. I dissected down through the subcu soft tissues down to the lateral malleolus. We may encounter the displaced fracture. Periosteal elevation was utilized to better visualize the fracture. The fracture was now reduced with point-to- point bone reduction clamp. We had a good anatomic reduction. I chose a 7 hole one third semitubular plate and appropriate contoured. It was held in position while drill holes were made appropriately screws were inserted 7. All those had good bite and purchase. The clamp was removed. The fracture. Stable and well reduced. The C-arm was brought in confirming adequate alignment of both the fracture and hardware. Spot films were obtained to document that. The wound was irrigated with antibiotic irrigant. The subcu soft tissues were repaired with 2-0 Vicryl in layers. The skin was approximated with skin heriberto. Sterile dressings were applied followed by loose web roll. The tourniquet was released with immediate capillary refill of all digits and foot noted. We now placed the patient into a modified bulky Woodward splint with ankle in neutral position. The patient was transferred to bed and then recovery stable condition. Gurvinder DINERO assisted with the procedure.
[2018-11-26] MEDS: KETOROLAC 30 MG/ML 1 ML VIAL IVP SCH ×2 (16:52→23:45)
[2018-11-26] MEDS: fentaNYL (PF) 50 MCG/ML 2 ML AMP IV PRN ×3 (16:53→17:31)
[2018-11-26 16:58] VITALS: RESP 16
[2018-11-26] MEDS: traMADol 50 MG TAB PO SCH ×2 (18:02→21:44)
--- NOTE | 2018-11-26 20:32 | FL ---
EXAMINATION TYPE: FL guidance operating room, XR ankle complete LT DATE OF EXAM: 11/26/2018 CLINICAL HISTORY: Left ankle fracture. TECHNIQUE: Fluoroscopy. Intraoperative 3 views left ankle. COMPARISON: None. FINDINGS: Fluoroscopic guidance was provided during open reduction and internal fixation procedure p erformed by Dr. Thomason. A total of 12 seconds of fluoroscopic time was utilized during the proced ure and 3 spot images are acquired. 3-D images acquired show placement of a lateral fixating plate at level of lateral malleolus, fractur e line is not well-visualized. Alignment is satisfactory after reduction and fixation. IMPRESSION: As Above.
[2018-11-26] MEDS: PROPRANOLOL 20 MG TAB PO SCH (21:44)
[2018-11-26] MEDS: TOPIRAMATE 25 MG TAB PO SCH (21:44)
[2018-11-26] MEDS: ceFAZolin IN SWFI 2 GM/20 ML SYRINGE IVP SCH (23:46)
[2018-11-27] MEDS: KETOROLAC 30 MG/ML 1 ML VIAL IVP SCH ×2 (05:21→12:37)
[2018-11-27] MEDS: LACTATED RINGERS 1,000 ML IV SCH (05:23)
[2018-11-27] MEDS: ceFAZolin IN SWFI 2 GM/20 ML SYRINGE IVP SCH (08:43)
[2018-11-27] MEDS: PROPRANOLOL 20 MG TAB PO SCH (08:43)
[2018-11-27] MEDS: traMADol 50 MG TAB PO SCH ×2 (08:43→12:36)
[2018-11-27] MEDS: TOPIRAMATE 25 MG TAB PO SCH (08:44)
[2018-11-27] MEDS ORDERED: LORATADINE 10 MG TAB PO SCH (09:00)
[2018-11-27] MEDS ORDERED: ASPIRIN 325 MG TAB PO SCH (09:00)
[2018-11-27] MEDS ORDERED: FLUoxetine HCL 20 MG CAP PO SCH (09:00)
--- NOTE | 2018-11-27 13:45 | P.PN ---
Subjective Progress Note Date: 11/27/18 Principal diagnosis: Status post ORIF right ankle lateral malleolus fracture Patient evaluated today, she is resting comfortably. No acute pain noted. Denies any chest pain or shortness of breath. Objective - Vital Signs Vital signs: Vital Signs Temp 98.6 F 11/27/18 07:30 Pulse 78 11/27/18 07:30 Resp 16 11/27/18 07:30 BP 124/79 11/27/18 07:30 Pulse Ox 98 11/27/18 07:30 Intake & Output 11/26/18 11/27/18 11/27/18 18:59 06:59 18:59 Intake Total 1487 625 Output Total 5 Balance 1482 625 Intake: IV 1251 Intake, IV Titration 625 Amount Lactated Ringers 1,000 ml 625 @ 50 mls/hr IV .Q20H SHOSHANA Rx#:[id number] Oral 236 Output: Estimated Blood Loss 5 Other: Voiding Method Toilet Toilet # Voids 1 - Exam Right lower extremity: Splint is in good position and condition. Skin is warm to touch. Cap refills less than 2 seconds. Sensation to light touch both proximal distal to the splinter intact. Assessment and Plan Plan: Assessment: I 1. Postop day #1 status post ORIF right ankle lateral malleolus fracture Plan: Pain control, we'll discharge home on tramadol 50 mg Nonweightbearing right lower extremity, prescription for a knee scooter was provided Ice and elevate often Do not remove splint, keep dry and covered while showering Plan for discharge today, follow-up in 2 weeks Time with Patient: Less than 30
--- NOTE | 2018-11-27 13:51 | P.DS ---
Providers Date of admission: 11/26/18 13:59 Expected date of discharge: 11/27/18 Attending physician: Daniel Thomason Primary care physician: Ruby Meadows Hospital Course: Date of admission: 11/26/2018 Date of discharge: 11/27/2018 Admission diagnosis: Status post ORIF right ankle lateral malleolus fracture Discharge diagnosis: Same Attending physician: Dr. Thomason Surgical procedures: Open reduction internal fixation right ankle lateral malleolus fracture Brief history: Patient is a 43-year-old female with a history of recent injury occurred at work. She slipped and fell on the ice resulting in a right ankle injury. She was evaluated in the outpatient setting by Dr. Thomason, treatment options were discussed. It was decided surgical intervention would be the best fit, she was scheduled for surgery for 11/26/2018. Hospital course: Details of patient's surgery can be found in operative report. Patient tolerated the procedure well and was subsequently transported to orthopedic floor. Patient's orthopeidc and medical care was provided daily. Patient had daily laboratory tests performed for evaluation of overall blood counts. Patient had daily physical therapy to include strengthening range of motion as well as education with walker ambulation. Patient was treated with aspirin for their postoperative DVT prophylaxis during their inpatient stay. Patient was noted to have a relatively uneventful postoperative course. Patient reported satisfactory pain control with oral pain medications by postoperative day 0. Patient showed satisfactory progress with physical therapy. Patient moved steadily through the program and had no difficulty meeting the goals by postoperative day 1. Given patient's otherwise satisfactory course and having met physical therapy goals, plan is to discharge patient home on postoperative day 1. Discharge condition/disposition: Patient will be discharged home in stable condition. Discharge medications: Instructions are given on resumption of patient's normal daily medications per primary care recommendation, in addition patient will be prescribed tramadol 50 mg, aspirin 325 mg. Discharge instructions: 1. Keep splint clean and dry, do not remove. Keep covered while showering 2. Nonweightbearing right lower extremity, utilizing a scooter 3. Ice and elevate when necessary. Do not exceed 20 minutes per hour with ice pack. 4. Utilize compression sleeve until seen at first follow up appointment. 7. Pain meds and anticoagulants per prescription. 8. Pain medication has potential to cause constipation. Increase oral fluid and fiber intake. Contact primary care provider if you have not had a bowel movement within 48 hours after discharge 10. Follow up in office at 2 weeks postop with Gurvinder Amos PA-C 11. Follow up with your primary care doctor 7-10 days after discharge. 12. Contact [facility] with any questions, . Procedures: Open reduction internal fixation right ankle lateral malleolus fracture Patient Condition at Discharge: Good Plan - Discharge Summary Discharge Rx Participant: Yes New Discharge Prescriptions: New Aspirin 325 mg PO DAILY #30 tab traMADol HCl [Ultram] 50 mg PO Q6H PRN #21 tab PRN Reason: Pain No Action FLUoxetine HCL [PROzac] 40 mg PO DAILY Norgestimate-Ethinyl Estradiol [Ortho Tri-Cyclen 28 Tablet] 1 tab PO HS Ergocalciferol [Vitamin D2 (DRISDOL)] 50,000 unit PO MO Topiramate [Topamax] 50 mg PO BID Magnesium Oxide [Mag-Ox] 400 mg PO DAILY Loratadine 10 mg PO DAILY Propranolol [Inderal] 20 mg PO BID Multivitamins, Thera [Multivitamin (formulary)] 1 tab PO DAILY Ginkgo Biloba(Dose Unknown) 1 tab PO DAILY Discharge Medication List Ergocalciferol [Vitamin D2 (DRISDOL)] 50,000 unit PO MO 06/04/18 [History] FLUoxetine HCL [PROzac] 40 mg PO DAILY 06/04/18 [History] Loratadine 10 mg PO DAILY 06/04/18 [History] Magnesium Oxide [Mag-Ox] 400 mg PO DAILY 06/04/18 [History] Norgestimate-Ethinyl Estradiol [Ortho Tri-Cyclen 28 Tablet] 1 tab PO HS [History] Propranolol [Inderal] 20 mg PO BID 06/04/18 [History] Topiramate [Topamax] 50 mg PO BID 06/04/18 [History] Ginkgo Biloba(Dose Unknown) 1 tab PO DAILY 11/23/18 [History] Multivitamins, Thera [Multivitamin (formulary)] 1 tab PO DAILY 11/23/18 [History ] Aspirin 325 mg PO DAILY #30 tab 11/27/18 [Rx] traMADol HCl [Ultram] 50 mg PO Q6H PRN #21 tab 11/27/18 [Rx] Follow up Appointment(s)/Referral(s): Braeden Amos, JOSE A [PHYSICIAN [employer]] - 2 Weeks Activity/Diet/Wound Care/Special Instructions: Discharge instructions: 1. Tramadol as needed for discomfort, [id number] anti-inflammatories or Tylenol as needed 2. Ice and elevate often 3. Nonweightbearing right lower extremity 4. Utilize knee scooter 5. Plan for follow-up in 2 weeks Discharge Disposition: HOME SELF-CARE
[2018-11-27 16:24] VITALS: BP 126/86; PULSE 77; TEMP 98.4
== END 2018-11-27 16:45 | disposition home or self-care (01) | DRG 494 ==
LOC: 2ORMAIN 13:59 → 4SSUR 16:50
PROVIDERS: ADMIT Orthopaedic Surgery; ATTEND Orthopaedic Surgery
PROC: 0QSJ04Z Reposition Right Fibula with Internal Fixation Device, Open Approach (ICD-10-PCS; principal; 2018-11-26 15:15)
DX: S82.61XA Displaced fracture of lateral malleolus of right fibula, initial encounter for closed fracture (principal); F32.9 Major depressive disorder, single episode, unspecified; G43.909 Migraine, unspecified, not intractable, without status migrainosus; Z79.82 Long term (current) use of aspirin; Z79.899 Other long term (current) drug therapy; Z88.2 Allergy status to sulfonamides; W00.0XXA Fall on same level due to ice and snow, initial encounter; Y92.9 Unspecified place or not applicable
CPT/HCPCS: 64450

== ENCOUNTER → 2019-03-13 | Outpatient (CLI) | payer OTHER ==
--- NOTE | 2019-03-15 10:04 | MM ---
Reason for exam: screening (asymptomatic). Last mammogram was performed 1 year and 1 month ago. History: Patient had first child at age 34. Benign excisional biopsy of the left breast, 2007. Benign excisional biopsy of the left breast, November 21, 2001. Taking hormonal contraceptives for 5 years. Physical Findings: A clinical breast exam by your physician is recommended on an annual basis and results should be correlated with mammographic findings. MG Screening Mammo w CAD Bilateral CC and MLO view(s) were taken. Prior study comparison: January 30, 2018, bilateral MG screening mammo w CAD. October 25, 2016, bilateral MG screening mammo w CAD. The breast tissue is heterogeneously dense. This may lower the sensitivity of mammography. No significant changes when compared with prior studies. ASSESSMENT: Benign, BI-RAD 2 RECOMMENDATION: Routine screening mammogram of both breasts in 1 year.
== END | disposition home or self-care (01) ==
LOC: RADMAMWWP 13:38
PROVIDERS: ATTEND Obstetrics & Gynecology
DX: Z12.31 Encounter for screening mammogram for malignant neoplasm of breast (principal)
CPT/HCPCS: 77067

== ENCOUNTER → 2020-07-24 | Outpatient (CLI) | payer OTHER ==
--- NOTE | 2020-07-24 07:46 | US ---
EXAMINATION TYPE: US transvaginal DATE OF EXAM: 07/24/2020 COMPARISON: NONE CLINICAL HISTORY: N92.0 Excessive and frequent menstruation with reg. menorrhagia TECHNIQUE: Transvaginal (TV). patient not adequately prepped, patient did not want to wait to fill bladder, requested TV approach Date of LMP: 07/08/20, lasted 14 days EXAM MEASUREMENTS: Uterus: 8.3 x 4.4 x 4.5 cm Endometrial Stripe: 0.6 cm Right Ovary: 2.3 x 2.0 x 2.1 cm Left Ovary: 3.3 x 2.2 x 3.4 cm 1. Uterus: Anteverted heterogeneous 2. Endometrium: appears wnl 3. Right Ovary: limitations due to overlying bowel content, appears wnl 4. Left Ovary: limitations due to overlying bowel content, probable cystic area 2.3 x 1.8 x 2.2cm 5. Bilateral Adnexa: appears wnl 6. Posterior cul-de-sac: wnl Heterogeneous uterus with tiny nabothian cyst on initial image. Endometrial stripe measures 6 mm whic h is within normal limits. No obvious suspicious focal mass. No free fluid. Both ovaries seen and normal in size. No suspicious adnexal masses noted. IMPRESSION: No significant abnormality seen to comp for patient's symptoms of excessive menses.
== END | disposition home or self-care (01) ==
LOC: RADUSWWP 07:01
PROVIDERS: ATTEND Obstetrics & Gynecology
DX: N92.0 Excessive and frequent menstruation with regular cycle (principal)
CPT/HCPCS: 76830

== ENCOUNTER → 2020-09-16 | Outpatient (CLI) | payer OTHER ==
--- NOTE | 2020-09-18 08:43 | MM ---
Reason for exam: screening (asymptomatic). Last mammogram was performed 1 year and 6 months ago. History: Patient had first child at age 34. Benign excisional biopsy of the left breast, 2007. Benign excisional biopsy of the left breast, November 21, 2001. Taking hormonal contraceptives for 5 years. Physical Findings: A clinical breast exam by your physician is recommended on an annual basis and results should be correlated with mammographic findings. MG Screening Mammo w CAD Bilateral CC and MLO view(s) were taken. Prior study comparison: March 13, 2019, bilateral MG screening mammo w CAD. January 30, 2018, bilateral MG screening mammo w CAD. The breast tissue is heterogeneously dense. This may lower the sensitivity of mammography. There is no discrete abnormality. ASSESSMENT: Negative, BI-RAD 1 RECOMMENDATION: Routine screening mammogram of both breasts in 1 year.
== END | disposition home or self-care (01) ==
LOC: RADMAMWWP 11:04
PROVIDERS: ATTEND Obstetrics & Gynecology
DX: Z12.31 Encounter for screening mammogram for malignant neoplasm of breast (principal)
CPT/HCPCS: 77067

== ENCOUNTER 2020-09-18 06:17 | Day surgery (SDC) | payer OTHER ==
[2020-09-17 08:34] VITALS: BMI 38.9
--- NOTE | 2020-09-17 16:28 | P.HPOB ---
History of Present Illness H&P Date: 09/17/20 Chief Complaint: Menorrhagia Patient is a 45-year-old female who has heavy vaginal bleeding. The symptoms have been going on for a number of months. Bleeding occurs during the third week through her placebo pills of her control. She passes large clots some of which are larger than a plump and this is very limiting to her lifestyle and due to the pain and inability for the control pills to control her symptoms she is requesting more definitive therapy. She is scheduled for a D&C with hysteroscopy and NovaSure ablation with a bilateral laparoscopic tubal ligation for control. Risks/benefits/alternatives to this procedure were reviewed with the patient in detail and did include but were not limited to bleeding and infection, damage to bladder or bowel thermal injuries pain nerve or vascular injuries. All questions are answered for her prior to proceeding to the operating room. Past Medical History Past Medical History: Diabetes Mellitus, Hyperlipidemia, Skin Disorder, Thyroid Disorder Additional Past Medical History / Comment(s): migraines, hx hashimotos(cause of episode of hypertention and a-fib per pt), small hiatal hernia, eczema, hx kidney stones, History of Any Multi-Drug Resistant Organisms: None Reported Past Surgical History: Breast Surgery, Section, Orthopedic Surgery Additional Past Surgical History / Comment(s): rt foot bunionectomy, lumpectomy left breast, left knee arthroscopy, oral surgery, rt ankle ORIF Past Anesthesia/Blood Transfusion Reactions: No Reported Reaction Smoking Status: Former smoker - Past Family History Mother Family Medical History: No Reported History Father Family Medical History: Unable to Obtain Medications and Allergies Home Medications Medication Instructions Recorded Confirmed Type Ergocalciferol [Vitamin D2 50,000 unit PO PAYNE 06/04/18 09/17/20 History (DRISDOL)] Loratadine 10 mg PO DAILY 06/04/18 09/17/20 History Multivitamins, Thera [Multivitamin 1 tab PO DAILY 11/23/18 09/17/20 History (formulary)] Aspirin [Adult Low Dose Aspirin EC] 81 mg PO DAILY 09/17/20 09/17/20 History Cyclobenzaprine [Flexeril] 5 mg PO HS 09/17/20 09/17/20 History Levothyroxine Sodium [Synthroid] 25 mcg PO HS 09/17/20 09/17/20 History Liraglutide [Victoza 2-Piyush] 1.2 mg SQ HS 09/17/20 09/17/20 History Alfonso Control 1 tab PO HS 09/17/20 09/17/20 History Simvastatin [Zocor] 20 mg PO HS 09/17/20 09/17/20 History Topiramate [Topamax] 100 mg PO BID 09/17/20 09/17/20 History Vilazodone HCl [Viibryd] 20 mg PO DAILY 09/17/20 09/17/20 History metFORMIN HCL [Glucophage] 500 mg PO QAM 09/17/20 09/17/20 History Allergies Allergy/AdvReac Type Severity Reaction Status Date / Time Sulfa (Sulfonamide Allergy Anaphylaxis Verified 09/17/20 08:20 Antibiotics) acetaminophen [From Vicodin] AdvReac Nausea & Verified 09/17/20 08:20 Vomiting hydrocodone [From Vicodin] AdvReac Nausea & Verified 09/17/20 08:20 Vomiting hydromorphone [From Dilaudid] AdvReac Nausea & Verified 09/17/20 08:20 Vomiting morphine AdvReac Nausea & Verified 09/17/20 08:20 Vomiting Exam Osteopathic Statement: *. No significant issues noted on an osteopathic structural exam other than those noted in the History and Physical/Consult. Intake and Output 09/17/20 09/17/20 09/17/20 06:59 14:59 22:59 Other: Weight 93.44 kg - OBG Physical Exam Breast: both: normal (no masses) Abdomen: bowel sounds normal, no diffuse tenderness, no bruit present, no guarding noted, no hepatomegaly, no splenomegaly, no mass Vulva: both: normal Vagina: normal moisture, no discharge Cervix: no lesion, no discharge Uterus: normal size, normal contour Adnexa: both: normal Anus/Rectum: normal perianal skin, no rectal mass, no hemorrhoids, heme negative
[~2020-09-18 06:17] MED LIST changes: +LACTATED RINGERS 1,000 ML IV SCH; +LIDOCAINE 1% (10MG/ML) FOR IV START INTRADERMA PRN; -LIDOCAINE 1% 20 ML VIAL (10MG/ML) FOR IV START INTRADERMA PRN; -ONDANSETRON 4 MG/2 ML VIAL IVP ONE; +Pre Op ABX Message 1 EACH MISC MISCELLANE ONE; -ceFAZolin IN SWFI 2 GM/20 ML SYRINGE IVP ONE
[2020-09-18] MEDS ORDERED: LIDOCAINE 1% (10MG/ML) FOR IV START INTRADERMA ONE (07:00)
[2020-09-18] MEDS ORDERED: ONDANSETRON 4 MG/2 ML VIAL ONE (07:01)
[2020-09-18] MEDS ORDERED: ONDANSETRON 4 MG/2 ML VIAL IVP ONE ×2 (07:04→09:30)
[2020-09-18] MEDS ORDERED: DEXAMETHASONE SOD PHOSPHATE 4 MG/ML 1 ML VIAL IV ONE (07:05)
[2020-09-18] MEDS ORDERED: GLYCOPYRROLATE 0.2 MG/ML 2 ML VIAL ONE (07:27)
[2020-09-18] MEDS ORDERED: NEOSTIGMINE 1 MG/ML 10 ML VIAL ONE (07:27)
[2020-09-18] MEDS ORDERED: fentaNYL (PF) 50 MCG/ML 2 ML AMP ONE (07:27)
[2020-09-18] MEDS ORDERED: ROCURONIUM 10 MG/ML (10 ML VIAL) IV ONE (07:27)
[2020-09-18] MEDS ORDERED: MIDAZOLAM 2 MG/2 ML VIAL ONE (07:27)
[2020-09-18] MEDS ORDERED: PROPOFOL 10 MG/ML 20 ML VIAL IV ONE (07:27)
[2020-09-18] MEDS ORDERED: KETOROLAC 15 MG/ML 1 ML VIAL ONE (07:27)
[2020-09-18] MEDS ORDERED: SUCCINYLCHOLINE CHLORIDE 100 MG/5 ML SYR IV ONE (07:27)
[2020-09-18] MEDS ORDERED: LIDOCAINE 1% INJ 10MG/ML (20 ML MDV) ONE (07:27)
[2020-09-18 07:49] LABS: Glucose,Whole Blood 99 mg/dL (75-99)
[2020-09-18] MEDS ORDERED: BUPIVACAINE (PF) 0.25% 30 ML VIAL SQ ONE ×2 (07:56→08:11)
--- NOTE | 2020-09-18 08:37 | P.OP ---
Date of Procedure: 09/18/20 Preoperative Diagnosis: Menorrhagia and family planning Postoperative Diagnosis: Same Procedure(s) Performed: D&C with hysteroscopy and left scopic tubal occlusion with Filshie clips. Attempted NovaSure but array would not opening in uterus Anesthesia: DAVID Surgeon: Guille Arauz Estimated Blood Loss (ml): 3 IV fluids (ml): 700 Urine output (ml): 75 Pathology: other (Uterine curettings) Condition: stable Disposition: same day Operative Findings: Pathology pending Description of Procedure: Patient states the operating suite where general anesthetic was found be adequate. She was prepped and draped in normal sterile fashion and placed in dorsal lithotomy position. Initially a weighted speculum was inserted in the vagina and the anterior lip of the cervix identified and grasped with a single-tooth tenaculum. Cervix was then sounded to 8 cm and dilated. Once this was completed a uterine manipulator was inserted without difficulty other incidents removed and red rubber catheter was used to drain the bladder of urine. There is very limited Ascent dissent of the cervix due to prior sections. Once this was completed gloves were changed and attention was turned to abdominal portion procedure were 2 mL of quarter percent Marcaine was injected periumbilically. Through this injected anesthetic a 5 mm skin incision was made and through this incision, under direct visualization, the camera was inserted. Once peritoneal placement was assured gas was allowed to fully insufflate the abdomen and patient was then placed in steep Trendelenburg position. A second port and sleeve were then inserted in the left lower quadrant approximately 10 cm lateral to the umbilicus 2 cm inferior to the umbilicus. This was done as she had a foldable in her skin that was making it impossible to region. Once this completed uterus was identified there was scattered endometrial implants stage I there were noted but not anything with due to and sent. Once this was completed. Gloves were a pplied 2 cm from uterine cornu bilaterally and no bleeding is noted in the mesosalpinx. Uterus did not have much movement was very difficult to adjust position not a significant amount of scar tissue was noted that there was some scarring noted anteriorly. Once clips were applied and no bleeding is noted, incidents removed and gas was allowed to expel from the abdomen. 5 deep breaths were provided during this process. 4-0 Vicryl was then used to close incision subcuticularly. Once this was accomplished the remaining Marcaine was injected around the incisions. At this point we returned to the vagina weighted speculum was reinserted and into lip of cervix identified and grasped with single-tooth tenaculum. Cervix was then redilated and camera was inserted. Minimal visibility was noted. There was proliferative tissue was believed. Sharp curettings were then obtained placed on Telfa and sent to pathology for evaluation. NovaSure system was then brought in and inserted with length of 4 and despite multiple attempts the array would not open to give a width. We did try this for approximately 10 minutes manipulating the system as best as possible to allowed to open but it would not open. Outside of the body the array opened without difficulty competitions. I believe is her body habitus and shape of her uterus that is been unable to allow the array to open. We'll have her return in a week and discuss further options. Once this was accomplished systems were all removed all incidents were then removed sponge, lap, needle counts were correct 2. Patient was taken to the recovery room in stable and satisfactory condition. Plan - Discharge Summary Discharge Rx Participant: Yes New Discharge Prescriptions: New Ibuprofen [Motrin] 600 mg PO Q6HR PRN #30 tab PRN Reason: Pain No Action Ergocalciferol [Vitamin D2 (DRISDOL)] 50,000 unit PO PAYNE Loratadine 10 mg PO DAILY Multivitamins, Thera [Multivitamin (formulary)] 1 tab PO DAILY Topiramate [Topamax] 100 mg PO BID Cyclobenzaprine [Flexeril] 5 mg PO HS metFORMIN HCL [Glucophage] 500 mg PO QAM Aspirin [Adult Low Dose Aspirin EC] 81 mg PO DAILY Vilazodone HCl [Viibryd] 20 mg PO DAILY Liraglutide [Victoza 2-Piyush] 1.2 mg SQ HS Alfonso Control 1 tab PO HS Simvastatin [Zocor] 20 mg PO HS Levothyroxine Sodium [Synthroid] 25 mcg PO HS Discharge Medication List Ergocalciferol [Vitamin D2 (DRISDOL)] 50,000 unit PO PAYNE 06/04/18 [History] Loratadine 10 mg PO DAILY 06/04/18 [History] Multivitamins, Thera [Multivitamin (formulary)] 1 tab PO DAILY 11/23/18 [History] Aspirin [Adult Low Dose Aspirin EC] 81 mg PO DAILY 09/17/20 [History] Cyclobenzaprine [Flexeril] 5 mg PO HS 09/17/20 [History] Levothyroxine Sodium [Synthroid] 25 mcg PO HS 09/17/20 [History] Liraglutide [Victoza 2-Piyush] 1.2 mg SQ HS 09/17/20 [History] Alfonso Control 1 tab PO HS 09/17/20 [History] Simvastatin [Zocor] 20 mg PO HS 09/17/20 [History] Topiramate [Topamax] 100 mg PO BID 09/17/20 [History] Vilazodone HCl [Viibryd] 20 mg PO DAILY 09/17/20 [History] metFORMIN HCL [Glucophage] 500 mg PO QAM 09/17/20 [History] Ibuprofen [Motrin] 600 mg PO Q6HR PRN #30 tab 09/18/20 [Rx] Follow up Appointment(s)/Referral(s): Guille Arauz DO [Doctor of Osteopathic Medicine] - 1 Week Activity/Diet/Wound Care/Special Instructions: No heavy lifting today, limit stairs and driving today, pelvic rest. If any high temperatures, heavy bleeding, or severe pain call my office Discharge Disposition: HOME SELF-CARE
[2020-09-18 08:45] VITALS: TEMP 98
[2020-09-18 08:47] VITALS: RESP 16
[2020-09-18] MEDS ORDERED: LACTATED RINGERS 1,000 ML IV ONE (08:54)
[2020-09-18 08:58] LABS: Glucose,Whole Blood 164 mg/dL (75-99)
[2020-09-18] MEDS ORDERED: fentaNYL (PF) 50 MCG/ML 2 ML AMP IVP ONE (09:01)
[2020-09-18] MEDS ORDERED: HYDROcodone/APAP 5-325MG 1 EACH TAB PO STA (09:53)
[2020-09-18 10:21] VITALS: BP 99/56; PULSE 55
== END 2020-09-18 10:45 | disposition home or self-care (01) ==
LOC: OR 06:17
PROVIDERS: ATTEND Obstetrics & Gynecology
DX: Z30.2 Encounter for sterilization (principal); N92.0 Excessive and frequent menstruation with regular cycle; F32.9 Major depressive disorder, single episode, unspecified; E11.9 Type 2 diabetes mellitus without complications; E07.9 Disorder of thyroid, unspecified; E78.5 Hyperlipidemia, unspecified; Z79.890 Hormone replacement therapy; Z79.3 Long term (current) use of hormonal contraceptives; Z79.84 Long term (current) use of oral hypoglycemic drugs; Z79.82 Long term (current) use of aspirin; Z79.899 Other long term (current) drug therapy; Z88.2 Allergy status to sulfonamides; Z88.5 Allergy status to narcotic agent; Z87.891 Personal history of nicotine dependence; G43.909 Migraine, unspecified, not intractable, without status migrainosus; Z87.442 Personal history of urinary calculi; Z87.19 Personal history of other diseases of the digestive system; Z98.891 History of uterine scar from previous surgery; Z98.890 Other specified postprocedural states
CPT/HCPCS: 81025; 88305; 58563; 58671; J2250; J1100; J2710; J2405; J2001; J3010; J1885; J0330; J2704

== ENCOUNTER → 2022-04-06 | Outpatient (CLI) | payer OTHER ==
--- NOTE | 2022-04-07 16:52 | MM ---
Reason for Exam: Screening (asymptomatic). Last mammogram was performed 1 year(s) and 6 month(s) ago. Patient History: Menarche at age 14. First Full-Term at age 34. Late child-bearing (after 30). Hormonal Contraceptives for 8 years from age 34 until age 42. 2007, Benign Excisional Biopsy on the left side. 11/21/2001, Benign Excisional Biopsy on the left side. Risk Values: Shanell 5 year model risk: 3.0%. NCI Lifetime model risk: 19.9%. Prior Study Comparison: 01/30/2018 Bilateral Screening Mammogram, [facility]. 03/13/2019 Bilateral Screening Mammogram, [facility]. 09/16/2020 Bilateral Screening Mammogram, [facility]. Tissue Density: The breast tissue is heterogeneously dense. This may lower the sensitivity of mammography. Findings: Analyzed By CAD. No suspicious groups of microcalcifications, spiculated or lobular masses, architectural distortion or other secondary signs of malignancy are mammographically apparent. Overall Assessment: Benign, BI-RAD 2 Management: Screening Mammogram of both breasts in 1 year. A negative mammogram report should not preclude additional follow up of suspicious palpable abnormalities. Patient should continue monthly self breast exam. A clinical breast exam by your physician is recommended on an annual basis and results should be correlated with mammographic findings. Electronically signed and approved by: José Nunn D.O. Radiologis
== END | disposition home or self-care (01) ==
LOC: RADMAMWWP 13:48
PROVIDERS: ATTEND Obstetrics & Gynecology
DX: Z12.31 Encounter for screening mammogram for malignant neoplasm of breast (principal)
CPT/HCPCS: 77067

== ENCOUNTER 2022-06-09 16:23 | Day surgery (SDC) | payer OTHER ==
--- NOTE | 2022-06-09 16:17 | P.HPIHPCON ---
History of Present Illness H&P Date: 06/09/22 Chief Complaint: Left ureteral stone This is a 47-year-old female with history of a 5 mm left-sided proximal stone. Patient has been having intractable pain with nausea. Also been having fevers or 101. She does have history of stones. Discussed with her given ureteral st ones in the fever recommend proceeding with ureteral stent placement. Discussed the risk and benefit and rationale of doing the surgery. She understood all the risk and agreed to proceed with ureteral stent insertion Consent for Procedure: I have explained the operation/procedure to the patient, including the risks, benefits, side effects, alternative therapies (including not receiving the proposed treatment or service), the likelihood of the patient achieving his/her goals, and potential recuperation problems for the procedure/sedation/analgesia, as well as any blood products, if indicated. I also explained to the patient the risks, benefits and side effects of the alternatives, as well as the risks related to not receiving the proposed procedure, care, treatment, or services. Past Medical History Past Medical History: Atrial Fibrillation, Hypertension, Skin Disorder, Thyroid Disorder Additional Past Medical History / Comment(s): migraines, hashimotos(cause of hypertention and a-fib per pt), small hiatal hernia, eczema, hx kidney stones, slipped on ice and fx rt ankle 11/22/18(has splint on) History of Any Multi-Drug Resistant Organisms: None Reported Past Surgical History: Breast Surgery, Section, Orthopedic Surgery Additional Past Surgical History / Comment(s): rt foot bunionectomy, lumpectomy left breast, left knee arthroscopy, oral surgery Past Anesthesia/Blood Transfusion Reactions: No Reported Reaction Additional Psychological History / Comment(s): "slight"- seasonal Past Alcohol Use History: Rare Additional Past Alcohol Use History / Comment(s): quit smoking 2013, smoked for total 10 1/2 yrs Past Drug Use History: Marijuana Additional Drug Use History / Comment(s): occ. - Past Family History Mother Family Medical History: No Reported History Father Family Medical History: Unable to Obtain Medications and Allergies Home Medications Medication Instructions Recorded Confirmed Type Ergocalciferol [Vitamin D2 50,000 unit PO PAYNE 06/04/18 09/18/20 History (DRISDOL)] Loratadine 10 mg PO DAILY 06/04/18 09/18/20 History Multivitamins, Thera [Multivitamin 1 tab PO DAILY 11/23/18 09/18/20 History (formulary)] Aspirin [Adult Low Dose Aspirin EC] 81 mg PO DAILY 09/17/20 09/18/20 History Cyclobenzaprine [Flexeril] 5 mg PO HS 09/17/20 09/18/20 History Levothyroxine Sodium [Synthroid] 25 mcg PO HS 09/17/20 09/18/20 History Liraglutide [Victoza 2-Piyush] 1.2 mg SQ HS 09/17/20 09/18/20 History Alfonso Control 1 tab PO HS 09/17/20 09/18/20 History Simvastatin [Zocor] 20 mg PO HS 09/17/20 09/18/20 History Topiramate [Topamax] 100 mg PO BID 09/17/20 09/18/20 History Vilazodone HCl [Viibryd] 20 mg PO DAILY 09/17/20 09/18/20 History metFORMIN HCL [Glucophage] 500 mg PO QAM 09/17/20 09/18/20 History Ibuprofen [Motrin] 600 mg PO Q6HR PRN #30 tab 09/18/20 Rx Allergies Allergy/AdvReac Type Severity Reaction Status Date / Time Sulfa (Sulfonamide Allergy Anaphylaxis Verified 09/18/20 06:48 Antibiotics) hydrocodone [From Vicodin] AdvReac Nausea & Verified 09/18/20 06:48 Vomiting hydromorphone [From Dilaudid] AdvReac Nausea & Verified 09/18/20 06:48 Vomiting morphine AdvReac Nausea & Verified 09/18/20 06:48 Vomiting Surgical - Exam - General no distress, moderate pain - Eyes normal ocular movement, no pale - ENT normal nares, normal mucosa - Respiratory normal expansion, normal respiratory effort - Abdomen Abdomen: soft, non tender - Psychiatric oriented to time, oriented to person, oriented to place Assessment and Plan Assessment: OR for cystoscopy and left stent insertion
[~2022-06-09 16:23] MED LIST changes: +GENTAMICIN 120 MG in SODIUM CHLORIDE 0.9% 100 ML IVPB PRN; -LACTATED RINGERS 1,000 ML IV SCH; -LIDOCAINE 1% (10MG/ML) FOR IV START INTRADERMA PRN; -Pre Op ABX Message 1 EACH MISC MISCELLANE ONE
[2022-06-09] MEDS ORDERED: ONDANSETRON 4 MG/2 ML VIAL ONE (16:43)
[2022-06-09] MEDS ORDERED: LACTATED RINGERS 1,000 ML IV ONE (16:45)
[2022-06-09] MEDS ORDERED: DEXAMETHASONE SOD PHOSPHATE 4 MG/ML 1 ML VIAL IVP ONE (17:00)
[2022-06-09] MEDS ORDERED: SCOPOLAMINE 1 MG/72 HR PATCH TRANSDERM ONE (17:15)
[2022-06-09 17:19] LABS: Glucose,Whole Blood 94 mg/dL (70-110)
[2022-06-09] MEDS ORDERED: PROPOFOL 10 MG/ML 20 ML VIAL IV ONE (18:23)
[2022-06-09] MEDS ORDERED: LIDOCAINE 2% INJ 20 MG/ML (2 ML VIAL) ONE (18:23)
[2022-06-09] MEDS ORDERED: MIDAZOLAM 2 MG/2 ML VIAL ONE (18:23)
[2022-06-09] MEDS ORDERED: fentaNYL (PF) 50 MCG/ML 2 ML AMP ONE (18:23)
--- NOTE | 2022-06-09 18:46 | P.OP ---
Date of Procedure: 06/09/22 Preoperative Diagnosis: Left ureteral stone Postoperative Diagnosis: Same Procedure(s) Performed: Cystoscopy, left stent insertion Implants: 6-Irish by 22 cm stent in the left ureter Anesthesia: DAVID Surgeon: Yuan Ann Estimated Blood Loss (ml): 0 Pathology: none sent Condition: stable Disposition: PACU Indications for Procedure: This is a 47-year-old female with history of a 5 mm left-sided proximal stone. Patient has been having intractable pain with nausea. Also been having fevers or 101. She does have history of stones. Discussed with her given ureteral stones in the fever recommend proceeding with ureteral stent placement. Discussed the risk and benefit and rationale of doing the surgery. She understood all the risk and agreed to proceed with ureteral stent insertion Description of Procedure: Patient brought to the operating room, general anesthesia was induced. She was prepped and draped in sterile fashion and placed in dorsal lithotomy position. Cystoscopy fitted with 22 georgian sheath was inserted per urethra, cystoscopy was performed which showed no abnormality within the bladder. Attention was then carried to the left ureteral orifice which was intubated with a sensor wire. Next a ureteral stent was passed over the wire, the proximal curl was visualized on fluoroscopy and the distal curl was visualized using the cystoscope. Cloudy urine was drained from the collecting system. Patient tolerated the procedure well and significant recovery in stable condition
[2022-06-09 18:56] VITALS: TEMP 97.3
[2022-06-09 19:12] LABS: Glucose,Whole Blood 107 mg/dL (70-110)
[2022-06-09] MEDS ORDERED: KETOROLAC 15 MG/ML 1 ML VIAL ONE (19:42)
[2022-06-09 19:46] VITALS: RESP 18
[2022-06-09] MEDS ORDERED: KETOROLAC 15 MG/ML 1 ML VIAL IVP ONE (19:50)
[2022-06-09 20:06] VITALS: BP 126/64; PULSE 81
--- NOTE | 2022-06-09 21:23 | FL ---
EXAMINATION TYPE: FL guidance operating room DATE OF EXAM: 06/09/2022 CLINICAL HISTORY: Stent placement TECHNIQUE: Fluoroscopy. COMPARISON: None. FINDINGS: Fluoroscopic guidance was provided during procedure performed by Dr. Ann. A total of 4 seconds of fluoroscopic time was utilized during the procedure and 1 spot image was acquired. IMPRESSION: As Above.
== END 2022-06-09 20:10 | disposition home or self-care (01) ==
LOC: OR 16:23
PROVIDERS: ATTEND Urology
DX: N20.1 Calculus of ureter (principal); I48.91 Unspecified atrial fibrillation; I10 Essential (primary) hypertension; E06.3 Autoimmune thyroiditis; L30.9 Dermatitis, unspecified; K44.9 Diaphragmatic hernia without obstruction or gangrene; Z87.442 Personal history of urinary calculi; Z87.81 Personal history of (healed) traumatic fracture; Z98.890 Other specified postprocedural states; Z98.891 History of uterine scar from previous surgery; Z87.891 Personal history of nicotine dependence; Z79.84 Long term (current) use of oral hypoglycemic drugs; Z79.82 Long term (current) use of aspirin; Z79.890 Hormone replacement therapy; Z79.899 Other long term (current) drug therapy; Z88.5 Allergy status to narcotic agent; Z88.2 Allergy status to sulfonamides
CPT/HCPCS: 81025; 52332; C2625; C1769; J2250; J1100; J0690; J2405; J3010; J1580; J1885; J2704; J2001

== ENCOUNTER 2022-06-09 23:43 | Emergency (ER) | payer OTHER ==
[2022-06-09 23:52] VITALS: TEMP 98.2
[2022-06-10] MEDS ORDERED: HYDROmorphone 1 MG/ML 1 ML SYRINGE IVP STA (00:35)
[2022-06-10] MEDS ORDERED: ONDANSETRON 4 MG/2 ML VIAL IVP STA (00:35)
--- NOTE | 2022-06-10 00:40 | ED ---
General Adult HPI - General Chief complaint: Urogenital Stated complaint: post opp, SOB, abd pain Time Seen by Provider: 06/10/22 00:24 Source: patient Mode of arrival: ambulatory Limitations: no limitations - History of Present Illness Initial comments: 's patient is a 47-year-old woman who presents with complaint of having flank pain. She states that she had seen Dr. Ann this afternoon for ureteral stent placement. This was proximally 6 hours ago. Since that time she does continue to have pain and is urinating frequently with one present in the urine. She states that she was told to go to the emergency department if she was having terrible pain. She did try taking oral ketorolac and one [place] which did not relieve the pain very much. She has not noted fever or chills. Onset/Timin -: hour(s) Location: left Quality: aching, other (Cramping) Consistency: constant Improves with: none Worsens with: none Treatments Prior to Arrival: NSAID, other (Independence) - Related Data Home Medications Medication Instructions Recorded Confirmed Ergocalciferol [Vitamin D2 50,000 unit PO PAYNE 06/04/18 06/09/22 (DRISDOL)] Loratadine 10 mg PO DAILY 06/04/18 06/09/22 Multivitamins, Thera [Multivitamin 1 tab PO DAILY 11/23/18 06/09/22 (formulary)] Aspirin [Adult Low Dose Aspirin EC] 81 mg PO DAILY 09/17/20 06/09/22 Cyclobenzaprine [Flexeril] 5 mg PO HS 09/17/20 06/09/22 Levothyroxine Sodium [Synthroid] 25 mcg PO HS 09/17/20 06/09/22 Liraglutide [Victoza 2-Piyush] 1.2 mg SQ HS 09/17/20 06/09/22 Simvastatin [Zocor] 20 mg PO HS 09/17/20 06/09/22 Vilazodone HCl [Viibryd] 20 mg PO DAILY 09/17/20 06/09/22 metFORMIN HCL [Glucophage] 500 mg PO QAM 09/17/20 06/09/22 Previous Rx's Medication Instructions Recorded Ibuprofen [Motrin] 600 mg PO Q6HR PRN #30 tab 09/18/20 Allergies Allergy/AdvReac Type Severity Reaction Status Date / Time Sulfa (Sulfonamide Allergy Anaphylaxis Verified 06/09/22 23:52 Antibiotics) hydromorphone [From Dilaudid] AdvReac Nausea & Verified 06/09/22 23:52 Vomiting morphine AdvReac Nausea & Verified 06/09/22 23:52 Vomiting Review of Systems ROS Statement: Those systems with pertinent positive or pertinent negative responses have been documented in the HPI. ROS Other: All systems not noted in ROS Statement are negative. Constitutional: Denies: fever, chills Respiratory: Denies: cough, dyspnea Cardiovascular: Denies: chest pain, palpitations, edema Gastrointestinal: Reports: abdominal pain, nausea. Denies: vomiting, diarrhea, constipation, melena, hematochezia Genitourinary: Reports: hematuria. Denies: dysuria, frequency Musculoskeletal: Denies: back pain Skin: Denies: rash Neurological: Denies: headache, weakness Past Medical History Past Medical History: Atrial Fibrillation, Hypertension, Skin Disorder, Thyroid Disorder Additional Past Medical History / Comment(s): migraines, hashimotos(cause of hypertention and a-fib per pt), small hiatal hernia, eczema, hx kidney stones, slipped on ice and fx rt ankle 11/22/18(has splint on) History of Any Multi-Drug Resistant Organisms: None Reported Past Surgical History: Breast Surgery, Section, Orthopedic Surgery, Tubal Ligation Additional Past Surgical History / Comment(s): rt foot bunionectomy, lumpectomy left breast, left knee arthroscopy, oral surgery 2019 RT ANKLE ORIF Past Anesthesia/Blood Transfusion Reactions: Motion Sickness Past Psychological History: Depression Smoking Status: Former smoker Past Alcohol Use History: Rare Past Drug Use History: Marijuana - Past Family History Mother Family Medical History: No Reported History, GI Bleed, Hypertension, Myocardial Infarction (NM), Thyroid Disorder Additional Family Medical History / Comment(s): MATERNAL GRANDMA Father Family Medical History: Unable to Obtain General Exam Limitations: no limitations General appearance: alert, in no apparent distress Head exam: Present: atraumatic, normocephalic Eye exam: Present: normal appearance. Absent: scleral icterus, conjunctival injection ENT exam: Present: normal oropharynx Neck exam: Present: normal inspection Respiratory exam: Present: normal lung sounds bilaterally. Absent: respiratory distress, wheezes, rales, rhonchi, stridor Cardiovascular Exam: Present: regular rate, normal rhythm, normal heart sounds. Absent: systolic murmur, diastolic murmur, rubs, gallop GI/Abdominal exam: Present: soft. Absent: distended, tenderness, guarding, rebound, rigid, mass Extremities exam: Present: normal inspection, normal capillary refill. Absent: pedal edema, calf tenderness Back exam: Present: normal inspection, CVA tenderness (L). Absent: CVA tenderness (R) Neurological exam: Present: alert Skin exam: Present: warm, dry, intact, normal color. Absent: rash Course Vital Signs 06/09/22 06/10/22 23:50 01:35 Temperature 98.2 F Pulse Rate 124 H 78 Respiratory 32 H 22 Rate Blood Pressure 157/92 138/90 O2 Sat by Pulse 96 97 Oximetry Medical Decision Making - Lab Data Result diagrams: 06/10/22 00:39 06/10/22 00:39 Lab Results 06/10/22 06/10/22 06/10/22 Range/Units 00:39 00:39 00:39 WBC 6.4 (3.8-10.6) k/uL RBC 4.80 (3.80-5.40) m/uL Hgb 13.1 (11.4-16.0) gm/dL Hct 41.5 (34.0-46.0) % MCV 86.4 (80.0-100.0) fL MCH 27.3 (25.0-35.0) pg MCHC 31.6 (31.0-37.0) g/dL RDW 12.7 (11.5-15.5) % Plt Count 265 (150-450) k/uL MPV 8.5 Neutrophils % 88 % Lymphocytes % 8 % Monocytes % 3 % Eosinophils % 0 % Basophils % 0 % Neutrophils # 5.6 (1.3-7.7) k/uL Lymphocytes # 0.5 L (1.0-4.8) k/uL Monocytes # 0.2 (0-1.0) k/uL Eosinophils # 0.0 (0-0.7) k/uL Basophils # 0.0 (0-0.2) k/uL Sodium 140 (137-145) mmol/L Potassium 4.6 (3.5-5.1) mmol/L Chloride 107 (98-107) mmol/L Carbon Dioxide 20 L (22-30) mmol/L Anion Gap 13 mmol/L BUN 13 (7-17) mg/dL Creatinine 1.07 H (0.52-1.04) mg/dL Est GFR (CKD-EPI)AfAm 73 (>60 ml/min/1.73 sqM) Est GFR (CKD-EPI)NonAf 63 (>60 ml/min/1.73 sqM) Glucose 152 H (74-99) mg/dL Calcium 9.6 (8.4-10.2) mg/dL Total Bilirubin 0.3 (0.2-1.3) mg/dL AST 28 (14-36) U/L ALT 23 (4-34) U/L Alkaline Phosphatase 85 (38-126) U/L Total Protein 7.7 (6.3-8.2) g/dL Albumin 4.7 (3.5-5.0) g/dL Urine Color Dark Brown Urine Appearance Turbid H (Clear) Urine pH 7.5 (5.0-8.0) Ur Specific [place] >1.050 H (1.001-1.035) Urine Protein 2+ H (Negative) Urine Glucose (UA) Trace H (Negative) Urine Ketones Negative (Negative) Urine Blood Large H (Negative) Urine Nitrite Positive H (Negative) Urine Bilirubin 1+ H (Negative) Urine Urobilinogen 3.0 (<2.0) mg/dL Ur Leukocyte Esterase Moderate H (Negative) Urine RBC >182 H (0-5) /hpf Urine WBC 15 H (0-5) /hpf Urine Bacteria Rare H (None) /hpf Disposition Clinical Impression: Flank pain Disposition: HOME SELF-CARE Condition: Good Instructions (If sedation given, give patient instructions): Flank Pain (ED) Is patient prescribed a controlled substance at d/c from ED?: No Referrals: Brigido Osman MD [Primary Care Provider] - 1-2 days Yuan Ann MD [STAFF PHYSICIAN] - 1-2 days Time of Disposition: 01:55
[2022-06-10 01:08] LABS: Basophils % (A) 0 %; Eosinophils % (A) 0 %; HCT 41.5 % (34.0-46.0); HGB 13.1 gm/dL (11.4-16.0); Lymphocytes # (A) 0.5 k/uL (1.0-4.8); Lymphocytes % (A) 8 %; MCH 27.3 pg (25.0-35.0); MCHC 31.6 g/dL (31.0-37.0); MCV 86.4 fL (80.0-100.0); Mean Platelet Volume 8.5; Monocytes # (A) 0.2 k/uL (0-1.0); Monocytes % (A) 3 %; Neutrophils # (A) 5.6 k/uL (1.3-7.7); Neutrophils % (A) 88 %; Platelet Count 265 k/uL (150-450); RDW 12.7 % (11.5-15.5); WBC 6.4 k/uL (3.8-10.6)
[2022-06-10 01:26] LABS: Appearance,Urine Turbid (Clear); Bacteria,Urine Rare /hpf; Bilirubin,Urine 1+ (Negative); Blood,Urine Large (Negative); Color,Urine Dark Brown; Glucose,Urine (UA) Trace (Negative); Ketones,Urine Negative (Negative); Leukocyte Esterase,Urine Moderate (Negative); Nitrite,Urine Positive (Negative); PH, Urine 7.5 (5.0-8.0); Protein,Urine 2+ (Negative); RBC,Urine >182 /hpf (0-5); WBC,Urine 15 /hpf (0-5)
[2022-06-10 01:29] LABS: Albumin 4.7 g/dL (3.5-5.0); Calcium 9.6 mg/dL (8.4-10.2); Potassium 4.6 mmol/L (3.5-5.1); Total Bilirubin 0.3 mg/dL (0.2-1.3); Total Protein 7.7 g/dL (6.3-8.2)
[2022-06-10 01:36] VITALS: BP 138/90; PULSE 78; RESP 22
[2022-06-10 01:37] LABS: Specific Gravity,Urine >1.050 (1.001-1.035)
== END 2022-06-10 02:09 | disposition home or self-care (01) ==
LOC: EC 23:43
DX: R10.9 Unspecified abdominal pain (principal); I10 Essential (primary) hypertension; E07.9 Disorder of thyroid, unspecified; Z79.899 Other long term (current) drug therapy; Z87.891 Personal history of nicotine dependence; Z88.2 Allergy status to sulfonamides; Z88.6 Allergy status to analgesic agent; Z88.3 Allergy status to other anti-infective agents
CPT/HCPCS: 36415; 80053; 85025; 81001; 87086; 99284; 96374; 96375; J2405; J1170

== ENCOUNTER → 2022-06-29 | Outpatient (CLI) | payer OTHER ==
[2022-06-29 19:28] LABS: Appearance,Urine Cloudy (Clear); Bilirubin,Urine Negative (Negative); Blood,Urine Large (Negative); Color,Urine Yellow (Yellow); Ketones,Urine Negative (Negative); Nitrite,Urine Negative (Negative); PH, Urine 5.5 (5.0-8.0); Specific Gravity,Urine 1.011 (1.001-1.030); Urobilinogen,Urine 0.2 (0.2,1.0)
[2022-06-29 21:04] LABS: Bacteria,Urine None Seen /HPF (None Seen)
== END | disposition home or self-care (01) ==
LOC: LABPAT 13:10
PROVIDERS: ATTEND Urology
DX: Z01.812 Encounter for preprocedural laboratory examination (principal); N20.1 Calculus of ureter; R31.29 Other microscopic hematuria
CPT/HCPCS: 81001; 87086

== ENCOUNTER 2022-07-04 09:13 | Day surgery (SDC) | payer OTHER ==
[2022-07-01 08:55] VITALS: BMI 38.7
[~2022-07-04 09:13] MED LIST changes: +DEXAMETHASONE SOD PHOSPHATE 4 MG/ML 1 ML VIAL IV ONE; -GENTAMICIN 120 MG in SODIUM CHLORIDE 0.9% 100 ML IVPB PRN; +LACTATED RINGERS 1,000 ML IV SCH; +MIDAZOLAM 2 MG/2 ML VIAL IV PRN; +ONDANSETRON 4 MG/2 ML VIAL IVP ONE; +fentaNYL (PF) 50 MCG/ML 2 ML AMP IV PRN
[2022-07-04 10:15] LABS: Glucose,Whole Blood 89 mg/dL (70-110)
[2022-07-04] MEDS ORDERED: LIDOCAINE 2% INJ 20 MG/ML (2 ML VIAL) ONE (11:20)
[2022-07-04] MEDS ORDERED: MIDAZOLAM 2 MG/2 ML VIAL ONE (11:20)
[2022-07-04] MEDS ORDERED: fentaNYL (PF) 50 MCG/ML 2 ML AMP ONE (11:20)
[2022-07-04] MEDS ORDERED: PROPOFOL 10 MG/ML 20 ML VIAL IV ONE (11:20)
--- NOTE | 2022-07-04 11:30 | XR ---
KUB HISTORY: Lithotripsy No comparisons, KUB submitted on 2 images There is a double-J stent present on the left. Fallopian tubal ligation clips are in place. Probable vascular calcifications are present within the pelvis. At the level of the proximal left ureter there is calcification measuring approximately 6 mm. There is a slight spinal curvature. Some degenerative disc changes noted in the visualized spine. IMPRESSION: Probable proximal left ureteral calculus, indwelling stent.
--- NOTE | 2022-07-04 11:34 | P.HPIHPCON ---
History of Present Illness H&P Date: 07/04/22 Chief Complaint: Left ureteral stone This is a 47-year-old female with history of a 4 mm left-sided ureteral stone. She is status post left ureteral stent insertion on June 09. Presents today for definitive stone management. Her urine culture prior to surgery showed con taminant as the simple had approximately 100 squamous cells. Of note the urine analysis showed no bacteria. Additionally the patient is on antibiotics prior to surgery. Discussed with her the option of a left ureteroscopy with holmium laser. Discussed the risk which includes but not limited to bleeding, infection, injury to the ureter. Discussed also risks of anesthesia. She understood all the risk and agreed to proceed Consent for Procedure: I have explained the operation/procedure to the patient, including the risks, benefits, side effects, alternative therapies (including not receiving the proposed treatment or service), the likelihood of the patient achieving his/her goals, and potential recuperation problems for the procedure/sedation/analgesia, as well as any blood products, if indicated. I also explained to the patient the risks, benefits and side effects of the alternatives, as well as the risks related to not receiving the proposed procedure, care, treatment, or services. Past Medical History Past Medical History: Atrial Fibrillation, Diabetes Mellitus, Hypertension, Skin Disorder, Thyroid Disorder Additional Past Medical History / Comment(s): migraines, hashimotos (cause of htn & a-fib per pt -Dr monitoring bp.)., small hiatal hernia., eczema., kidney stones. History of Any Multi-Drug Resistant Organisms: None Reported Past Surgical History: Breast Surgery, Section, Orthopedic Surgery, Tubal Ligation Additional Past Surgical History / Comment(s): rt foot bunionectomy, lumpectomy left breast, left knee arthroscopy, oral surgery .,2019 RT ANKLE ORIF, cystoscopy with ureteral stent (06/09/22). Past Anesthesia/Blood Transfusion Reactions: No Reported Reaction, Motion Sickness Past Psychological History: Depression Additional Psychological History / Comment(s): . Smoking Status: Former smoker Past Alcohol Use History: Rare Additional Past Alcohol Use History / Comment(s): quit smoking 2006, smoked for total 10 1/2 yrs Past Drug Use History: Marijuana Additional Drug Use History / Comment(s): occasional marijuana use - Past Family History Mother Family Medical History: No Reported History, Diabetes Mellitus, Thyroid Disorder Additional Family Medical History / Comment(s): MATERNAL GRANDMA Father Family Medical History: Unable to Obtain Medications and Allergies Home Medications Medication Instructions Recorded Confirmed Type Ergocalciferol [Vitamin D2 50,000 unit PO WE 06/04/18 07/01/22 History (DRISDOL)] Loratadine 10 mg PO DAILY 06/04/18 07/01/22 History Aspirin [Adult Low Dose Aspirin EC] 81 mg PO DAILY 09/17/20 07/01/22 History Levothyroxine Sodium [Synthroid] 25 mcg PO DAILY 09/17/20 07/01/22 History Simvastatin [Zocor] 20 mg PO HS 09/17/20 07/01/22 History Vilazodone HCl [Viibryd] 20 mg PO BID 09/17/20 07/01/22 History metFORMIN HCL [Glucophage] 500 mg PO QAM 09/17/20 07/01/22 History Amitriptyline HCl [Elavil] 10 mg PO HS 07/01/22 07/01/22 History Cyanocobalamin (Vitamin B-12) 5,000 mcg PO DAILY 07/01/22 07/01/22 History [Vitamin B-12] Cyclobenzaprine [Flexeril] 10 mg PO HS 07/01/22 07/01/22 History Dulaglutide [Trulicity] 1.5 mg SQ WE 07/01/22 07/01/22 History Ketorolac [Toradol] 10 mg PO Q6HR PRN 07/01/22 07/01/22 History Liothyronine Sodium [Cytomel] 10 mcg PO DAILY 07/01/22 07/01/22 History Multivit with Calcium,Iron,Min 1 each PO DAILY 07/01/22 07/01/22 History [Women's Multivitamin] Spironolactone 25 mg PO HS 07/01/22 07/01/22 History Tamsulosin HCl [Flomax] 0.4 mg PO DAILY 07/01/22 07/01/22 History lamoTRIgine [LaMICtal] 50 mg PO HS 07/01/22 07/01/22 History Allergies Allergy/AdvReac Type Severity Reaction Status Date / Time Sulfa (Sulfonamide Allergy Anaphylaxis Verified 07/01/22 08:31 Antibiotics) hydromorphone [From Dilaudid] AdvReac Nausea & Verified 07/01/22 08:31 Vomiting morphine AdvReac Nausea & Verified 07/01/22 08:31 Vomiting Surgical - Exam - General no distress, no pain - Eyes normal ocular movement, no pale - ENT normal nares, normal mucosa - Respiratory normal expansion, normal respiratory effort - Abdomen Abdomen: soft, non tender Assessment and Plan Assessment: OR for left-sided ureteroscopy, holmium laser lithotripsy, stone basketing and stent removal
--- NOTE | 2022-07-04 12:15 | P.OP ---
Date of Procedure: 07/04/22 Preoperative Diagnosis: Left ureteral stone Postoperative Diagnosis: Same Implants: Cystoscopy, left ureteroscopy, holmium laser lithotripsy, stone basketing and stent removal Anesthesia: BOAZA Surgeon: Yuan Ann Estimated Blood Loss (ml): 1 Pathology: other (Left ureteral stone) Condition: stable Disposition: PACU Indications for Procedure: This is a 47-year-old female with history of a 4 mm left-sided ureteral stone. She is status post left ureteral stent insertion on June 09. Presents today for definitive stone management. Her urine culture prior to surgery showed contaminant as the simple had approximately 100 squamous cells. Of note the urine analysis showed no bacteria. Additionally the patient is on antibiotics prior to surgery. Discussed with her the option of a left ureteroscopy with holmium laser. Discussed the risk which includes but not limited to bleeding, infection, injury to the ureter. Discussed also risks of anesthesia. She understood all the risk and agreed to proceed Operative Findings: Left proximal ureteral stone Description of Procedure: Patient brought to the operating room, general anesthesia was induced and she was prepped and draped in sterile fashion a placement dorsal lithotomy position. A cystoscopy fitted with 21-Chinese sheath was inserted per urethra, cystoscopy was performed which showed no abnormality within the bladder. There was no evidence of cystitis. Next the stent was grasped and removed to the meatus. Next a sensor wire was advanced through the stent the stent was removed with wire in place. Next under fluoroscopy [id number] access sheath was passed over the wire and into the proximal ureter. Next flexible ureteroscope was inserted through the access sheath. at this time a stone was seen in the UPJ. Using the holmium laser the stone was fragmented into small fragments, sizable fragments were removed and sent for analysis. Repeat renoscopy showed no sizable fragments or injury to the kidney. Pullback ureteroscopy was performed which showed no injury to the ureter or any evidence of ureteral stone. The bladder was emptied at the end of the case. Patient tolerated procedure well was taken to recovery in stable condition
[2022-07-04 12:18] VITALS: TEMP 97.3
[2022-07-04 12:33] VITALS: RESP 16
[2022-07-04] MEDS ORDERED: KETOROLAC 15 MG/ML 1 ML VIAL IVP ONE (12:51)
[2022-07-04] MEDS ORDERED: KETOROLAC 15 MG/ML 1 ML VIAL ONE (12:52)
[2022-07-04 13:06] VITALS: BP 141/96; PULSE 77
--- NOTE | 2022-07-04 14:09 | FL ---
Fluoroscopy HISTORY: Left ureteral calculus 2 seconds fluoroscopy time supplied to the referring clinician. 1 intraoperative C-arm images docume nt the procedure. See dictated report from urology.
== END 2022-07-04 13:25 | disposition home or self-care (01) ==
LOC: OR 09:13
PROVIDERS: ATTEND Urology
DX: N20.1 Calculus of ureter (principal); I48.91 Unspecified atrial fibrillation; I10 Essential (primary) hypertension; E11.9 Type 2 diabetes mellitus without complications; E07.9 Disorder of thyroid, unspecified; L98.9 Disorder of the skin and subcutaneous tissue, unspecified; F12.90 Cannabis use, unspecified, uncomplicated; K44.9 Diaphragmatic hernia without obstruction or gangrene; G43.909 Migraine, unspecified, not intractable, without status migrainosus; E06.3 Autoimmune thyroiditis; F32.A Depression, unspecified; L30.9 Dermatitis, unspecified; Z98.890 Other specified postprocedural states; Z98.891 History of uterine scar from previous surgery; Z98.51 Tubal ligation status; Z87.891 Personal history of nicotine dependence; Z90.12 Acquired absence of left breast and nipple
CPT/HCPCS: 52353; 81025; 82365; 74018; C1769; J2250; J1100; J2405; J3010; J1885; J2704; J2001

== ENCOUNTER → 2023-04-12 | Outpatient (CLI) | payer OTHER ==
--- NOTE | 2023-04-12 15:26 | MM ---
Reason for Exam: Screening (asymptomatic). Last screening mammogram was performed 12 month(s) ago. Patient History: Menarche at age 14. First Full-Term at age 34. Late child-bearing (after 32). Hormonal Contraceptives for 8 years from age 34 until age 42. 2007, Benign Excisional Biopsy on the left side. 11/21/2001, Benign Excisional Biopsy on the left side. Last menstrual period: 03/21/2023 Risk Values: Shanell 5 year model risk: 2.8%. NCI Lifetime model risk: 19.5%. Prior Study Comparison: 03/13/2019 Bilateral Screening Mammogram, [facility]. 09/16/2020 Bilateral Screening Mammogram, [facility]. 04/06/2022 Bilateral MG screening mammo w CAD, [facility]. Tissue Density: There are scattered fibroglandular densities. Findings: Analyzed By CAD. There is no suspicious group of microcalcifications or new suspicious mass in either breast. Overall Assessment: Negative, BI-RAD 1 Management: Screening Mammogram of both breasts in [address] [facility] will attempt to contact patient to return for supplemental views and ultrasound if indicated. Patient should continue monthly self-breast exams. A clinical breast exam by your physician is recommended on an annual basis. This exam should not preclude additional follow-up of suspicious palpable abnormalities. Note on Shanell scores and lifetime risk: 1. A Shanell score greater than 3% is considered moderate risk. If this is the case, consider specialist referral to assess eligibility for a risk reducing agent. 2. If overall lifetime risk for the development of breast cancer is 20% or higher, the patient may qualify for future screening with alternating mammogram and breast MRI. Electronically signed and approved by: Eric Mulligan DO
== END | disposition home or self-care (01) ==
LOC: RADMAMWWP 11:36
PROVIDERS: ATTEND Family Medicine
DX: Z12.31 Encounter for screening mammogram for malignant neoplasm of breast (principal)
CPT/HCPCS: 77067